=== PATIENT | male | born 1955 | race Caucasian/White ===

== ENCOUNTER → 2017-06-21 | Outpatient (CLI) | payer OTHER ==
[2017-06-21 13:08] LABS: LUTEINIZING HORMONE 2.11 IU/L
[2017-06-21 13:09] LABS: FOLLICLE STIMULAT HORMONE 3.26 IU/L
== END | disposition home or self-care (01) ==
LOC: C.LABMFLN 08:18
PROVIDERS: ATTEND Urology
DX: R79.89 Other specified abnormal findings of blood chemistry (principal)

== ENCOUNTER 2020-01-17 12:18 | Inpatient (IN) ==
[2020-01-17] MEDS ORDERED: METOPROLOL TARTRATE 1 MG/ML VIAL IV STA (12:28)
[2020-01-17] MEDS ORDERED: FUROSEMIDE 40 MG/4 ML VIAL IV STA (12:28)
--- NOTE | 2020-01-17 12:34 | Emergency Department Note ---
Impression & Plan Atrial fibrillation with rapid ventricular response, Hypoxia, Acute exacerbation of CHF (congestive heart failure), COVID-19 ED Provider Note Provider: Saji Wilkins MD DATE OF SERVICE:01/17/2020 CHIEF COMPLAINT: Hypoxia HISTORY OF PRESENT ILLNESS: Patient is a 64-year-old gentleman history of atrial fibrillation normally on Xarelto, hypertension, GERD, COPD not on oxygen, type 2 diabetes, chronic systolic heart failure presenting today from same-day surgery due to hypoxia, rapid A. fib, and fatigue with concerns of possible fluid overload. Patient states is not having significant symptoms and is not feeling short of breath currently. States he has some chronic lower extremity swelling up but is not significantly changed. States he is down to iliac knee replacement today and has held his Xarelto for the last 4 days. Is on aspirin. Took half dose of metoprolol today 50 mg of the normal 100 mg. Patient states that he did not take his 120 mg of Lasix today that he normally takes. Patient states he is nontoxic, does not feel wheezy like when he has issues with his COPD. Patient is a daily smoker. Denies chest pain or abdominal pain currently. REVIEW OF SYSTEMS: A total of 10 review of systems was obtained and negative except as stated above in the HPI. PAST MEDICAL HISTORY: As noted above MEDICATIONS: Reviewed home medications, normally Xarelto SOCIAL HISTORY: Smoker, lives at home PHYSICAL EXAM: GENERAL: alert and oriented in no acute distress on stretcher and again surgical Head: normocephalic and atraumatic EYES: No injection, discharge or icterus. NECK: Trachea midline. LUNGS: Airway patent. No retractions. Breath sounds with some expiratory wheeze and crackles in the bases HEART: Irregular tachycardic rate and rhythm. ABDOMEN: Soft and non-tender, without guarding or rebound. SKIN: Acyanotic, warm, dry, without rashes EXTREMITIES: 1-2+ lower extremity edema NEUROLOGICAL: No focal deficits. No aphasia. No facial droop or slurred speech. EK bpm atrial fibrillation rapid ventricular response. No PVC noted. No acute ST segment elevation noted. QTc does appear somewhat prolonged. CONTINUOUS CARDIAC MONITORING: was ordered and showed a heart rate of 102 bpm in atrial fibrillation Patient's laboratory studies and imaging reviewed. Differential includes Reactive airway disease, pneumonia, pneumothorax, COPD, CHF, infections, cardiac ischemia, pulmonary embolism, musculoskeletal, gastrointestinal, as well as other pathologies. IMPRESSION/MEDICAL DECISION MAKING: Patient presents for single surgery with hypoxia INR A. fib RVR. Took half dose metoprolol this morning. Given some additional IV metoprolol initially. Currently off anticoagulation. Doubt this represents pulmonary appears, fluid overloaded. Already had an x-ray and reviewed the several radiology report. Given some Lasix as he did not take this this morning as well a milligrams of the. Not having significant chest pain I doubt acute ACS again seems less likely exacerbation underlying CHF and A. fib. Covid test was sent to exclude a viral infectious source. Doubt acute pneumonia. Troponin is mildly elevated likely secondary his A. fib RVR. Not having active chest pain. Patient's Covid test does return positive today. Patient informed and thus placed in isolation. Same-day surgery unit will be informed by charge nurse. No significant electrolyte abnormality or signs of renal dysfunction. Given dexamethasone given his hypoxia with coronavirus although a syncope component is still some fluid overload. Heart rate is generally improving with some metoprolol here. Patient was agreement for plan for hospitalization. Given a dose of 1 mg/kg of Lovenox here initially for anticoagulation. DIAGNOSIS: COVID-19, hypoxia, CHF, A. fib RVR DISPOSITION: Hospitalist will evaluate for admission Patient was agreeable with this plan. Critical Care I have personally spent 33 minutes of critical care time in the direct management of this patient. This includes bedside care, interpretation of diagnostic studies, and testing, discussion with consultants, patient, and family members, and other required patient management activities. These 33 minutes is in excess of all separately billable procedures. Past Med/Surg History Medical History Anemia no known hx of blood transfusions per patient Atrial fibrillation CAD (coronary artery disease) stent x 1 (2007) Carotid artery stenosis < 50% B/L ICA stenosis per 08/2019 carotid duplex Chronic back pain Chronic steroid use chronic x 1.5 years (for right torn meniscus)- prednisone 10mg daily Congestive heart failure COPD (chronic obstructive pulmonary disease) Degenerative disc disease Depression Emphysema lung stage 3, follows with [facility] Pulmonary, stable GERD (gastroesophageal reflux disease) Hyperlipidemia Hypertension Myocardial Infarction 2007, follows with [facility] Cardiology (Jassi) Obesity Osteoarthritis Pulmonary embolism (approximately 2017) x2 Surgical History History of cardiac cath 2007 (stent x1) History of colonoscopy S/P lumbar fusion [id number]-S1 Family History Other Heart disease No family history of adverse response to anesthesia Social History Smoking Status: Current every day smoker Tobacco Type: Cigarettes Years Smoked: 40; Cigarettes Per Day: 10; Second Hand Exposure: Yes; Do You Dip or Chew Tobacco: No; Tobacco Cessation Education Requested by Patient: No Hx Alcohol Use: Yes Alcohol type: other Alcohol Intake Frequency: 2-3 x/Week Alcohol Intake Frequency Comment: 3 drinks liquor 2-3x/week Hx Substance Use: No Preferred Language: Uzbek Communication Ability: Effective Sociology Instructor Required: No Beliefs That Will Affect Care: None Current Living Situation: Alone Other Information That Helps Us Care for You: No Feels Safe at Home: Yes Assistive Devices: Glasses Allergies Allergies Allergy/AdvReac Type Severity Reaction Status Date / Time No Known Allergies Allergy Verified 01/17/20 10:30 Home Meds Home Medications Medication Instructions Recorded Confirmed albuterol sulfate 1.25 mg INHALATION Q4H PRN 01/04/20 01/17/20 aspirin [Aspirin Low-Strength] 81 mg PO QAM 01/04/20 01/17/20 cyanocobalamin (vitamin B-12) 1,000 mcg PO QAM 01/04/20 01/17/20 [Vitamin B-12] duloxetine 60 mg PO QAM 01/04/20 01/17/20 ezetimibe 10 mg PO QAM 01/04/20 01/17/20 ferrous sulfate [Iron (ferrous 325 mg PO QAM 01/04/20 01/17/20 sulfate)] [id number] 1 inh INHALATION QAM 01/04/20 01/17/20 [Trelegy Ellipta] furosemide 80 mg PO QAM 01/04/20 01/17/20 lisinopril 10 mg PO QAM 01/04/20 01/17/20 omeprazole 20 mg PO QAM 01/04/20 01/17/20 potassium chloride 20 meq PO QAM 01/04/20 01/17/20 prednisone 10 mg PO QAM 01/04/20 01/17/20 rivaroxaban [Xarelto] 20 mg PO QAM 01/04/20 01/17/20 rosuvastatin 40 mg PO QAM 01/04/20 01/17/20 metoprolol succinate 100 mg PO QAM 01/17/20 01/17/20 Results & Data (ED) Vital Signs Vital Signs - 24 hr 01/17/20 12:24 01/17/20 12:26 01/17/20 12:28 Temperature 36.8 C Temperature Source Oral Pulse Rate 125 H 113 H 109 H Pulse Rate [Apical] Pulse Rate from SpO2 Sensor 75 77 Pulse Rhythm [Apical] Respiratory Rate 18 22 18 Respiratory Effort / Characteristics Non-Labored Respiratory Depth Normal Respiratory Pattern Blood Pressure 123/63 123/63 Blood Pressure [Right Arm] Blood Pressure Mean 73 83 Blood Pressure Mean [Right Arm] Blood Pressure Position Lying Blood Pressure Position [Right Arm] Pulse Oximetry 96 98 87 L Oxygen Delivery Method Room Air Oxygen Flow Rate Sepsis Recent Fever Within 48 Hours No Sepsis New/Unexplained Change in Mental Status N/A Sepsis Action Taken by Nursing No Action Required 01/17/20 12:30 01/17/20 12:40 01/17/20 12:45 Temperature Temperature Source Pulse Rate 100 H 100 H Pulse Rate [Apical] Pulse Rate from SpO2 Sensor 90 86 Pulse Rhythm [Apical] Respiratory Rate 16 17 Respiratory Effort / Characteristics Non-Labored Spontaneous Respiratory Depth Normal Respiratory Pattern Blood Pressure Blood Pressure [Right Arm] Blood Pressure Mean Blood Pressure Mean [Right Arm] Blood Pressure Position Blood Pressure Position [Right Arm] Pulse Oximetry 97 97 Oxygen Delivery Method Oxygen Flow Rate Sepsis Recent Fever Within 48 Hours Sepsis New/Unexplained Change in Mental Status Sepsis Action Taken by Nursing 01/17/20 12:47 01/17/20 13:00 01/17/20 13:13 Temperature Temperature Source Pulse Rate 104 H 90 96 H Pulse Rate [Apical] 98 H Pulse Rate from SpO2 Sensor 84 82 Pulse Rhythm [Apical] Irregular Respiratory Rate 16 16 Respiratory Effort / Characteristics Respiratory Depth Respiratory Pattern Blood Pressure 123/63 112/66 Blood Pressure [Right Arm] 112/66 Blood Pressure Mean 95 Blood Pressure Mean [Right Arm] 81 Blood Pressure Position Blood Pressure Position [Right Arm] Lying Pulse Oximetry 93 97 Oxygen Delivery Method Nasal Cannula Oxygen Flow Rate 2 Sepsis Recent Fever Within 48 Hours Sepsis New/Unexplained Change in Mental Status Sepsis Action Taken by Nursing 01/17/20 13:15 01/17/20 13:30 01/17/20 13:36 Temperature Temperature Source Pulse Rate 101 H 104 H Pulse Rate [Apical] 100 H Pulse Rate from SpO2 Sensor 77 76 Pulse Rhythm [Apical] Respiratory Rate 16 17 22 Respiratory Effort / Characteristics Respiratory Depth Normal Respiratory Pattern Regular Blood Pressure 91/56 L Blood Pressure [Right Arm] 103/69 Blood Pressure Mean 73 Blood Pressure Mean [Right Arm] 80 Blood Pressure Position Blood Pressure Position [Right Arm] Lying Pulse Oximetry 97 98 99 Oxygen Delivery Method Nasal Cannula Nasal Cannula Nasal Cannula Oxygen Flow Rate 2 2 Sepsis Recent Fever Within 48 Hours Sepsis New/Unexplained Change in Mental Status Sepsis Action Taken by Nursing 01/17/20 13:37 01/17/20 13:45 Temperature Temperature Source Pulse Rate 92 H 94 H Pulse Rate [Apical] Pulse Rate from SpO2 Sensor 85 78 Pulse Rhythm [Apical] Respiratory Rate 16 16 Respiratory Effort / Characteristics Respiratory Depth Respiratory Pattern Blood Pressure 103/69 Blood Pressure [Right Arm] Blood Pressure Mean 72 Blood Pressure Mean [Right Arm] Blood Pressure Position Blood Pressure Position [Right Arm] Pulse Oximetry 99 98 Oxygen Delivery Method Nasal Cannula Nasal Cannula Oxygen Flow Rate 2 2 Sepsis Recent Fever Within 48 Hours Sepsis New/Unexplained Change in Mental Status Sepsis Action Taken by Nursing Laboratory Data Result diagrams: 01/17/20 12:30 01/17/20 12:30 Lab Results 01/17/20 01/17/20 01/17/20 Range/Units 12:30 12:30 12:30 WBC 5.70 (4.8-10.8) K/uL RBC 5.35 (4.7-6.1) M/uL Hgb 13.0 L (14.0-18.0) g/dL Hct 45.2 (42-52) % MCV 84.5 (80-100) fL MCH 24.3 L (25-34) pg MCHC 28.8 L (32-36) g/dL RDW Std Deviation 71.5 H (36.4-46.3) fL RDW Coeff of Gina 23.1 H (11.5-14.5) % Plt Count 148 (130-400) K/uL MPV 9.9 (7.4-10.4) fL Immature Gran % (Auto) 0.2 % Neut % (Auto) 80.8 % Lymph % (Auto) 6.7 % [place] % (Auto) 12.3 % Eos % (Auto) 0.0 % Baso % (Auto) 0.0 % Neut # (Auto) 4.61 (1.4-6.5) K/uL Lymph # (Auto) 0.38 L (1.2-3.4) K/uL [place] # (Auto) 0.70 H (0.11-0.59) K/uL Eos # (Auto) 0.00 (0-0.5) K/uL Baso # (Auto) 0.00 (0-0.2) K/uL Immature Gran # (Auto) 0.01 (0.00-0.02) K/uL Anisocytosis Present PT 11.8 (9.0-12.0) Seconds INR 1.1 (0.9-1.1) APTT 24.5 (21.0-31.0) Seconds PTT Ratio 0.9 Sodium 136 (136-145) mmol/L Potassium 3.7 (3.5-5.1) mmol/L Chloride 101 (98-107) mmol/L Carbon Dioxide 31 (21-32) mmol/L Anion Gap 4.0 (3-11) BUN 16 (7-18) mg/dl Creatinine 1.28 (0.6-1.4) mg/dl Est Cr Clr Drug Dosing 84.6 ml/min Est GFR ( Amer) 69.1 Est GFR (Non-Af Amer) 59.6 BUN/Creatinine Ratio 12.3 (10-20) Glucose 118 H (70-99) mg/dl Calcium 8.3 L (8.5-10.1) mg/dl Magnesium 2.3 (1.8-2.4) mg/dl Total Bilirubin 0.7 (0.2-1) mg/dl AST 26 (15-37) U/L ALT 27 (12-78) U/L Alkaline Phosphatase 74 (45-117) U/L Troponin I 0.081 H* (0-0.045) ng/ml Total Protein 6.6 (6.4-8.2) gm/dl Albumin 3.2 L (3.4-5.0) gm/dl Globulin 3.4 (2.5-4.0) gm/dl Albumin/Globulin Ratio 0.9 (0.9-2) COVID-19 Eval Order SARS-CoV-2, RNA, NAAT (NEGATIVE) 01/17/20 01/17/20 Range/Units 12:40 12:40 WBC (4.8-10.8) K/uL RBC (4.7-6.1) M/uL Hgb (14.0-18.0) g/dL Hct (42-52) % MCV (80-100) fL MCH (25-34) pg MCHC (32-36) g/dL RDW Std Deviation (36.4-46.3) fL RDW Coeff of Gina (11.5-14.5) % Plt Count (130-400) K/uL MPV (7.4-10.4) fL Immature Gran % (Auto) % Neut % (Auto) % Lymph % (Auto) % [place] % (Auto) % Eos % (Auto) % Baso % (Auto) % Neut # (Auto) (1.4-6.5) K/uL Lymph # (Auto) (1.2-3.4) K/uL [place] # (Auto) (0.11-0.59) K/uL Eos # (Auto) (0-0.5) K/uL Baso # (Auto) (0-0.2) K/uL Immature Gran # (Auto) (0.00-0.02) K/uL Anisocytosis PT (9.0-12.0) Seconds INR (0.9-1.1) APTT (21.0-31.0) Seconds PTT Ratio Sodium (136-145) mmol/L Potassium (3.5-5.1) mmol/L Chloride (98-107) mmol/L Carbon Dioxide (21-32) mmol/L Anion Gap (3-11) BUN (7-18) mg/dl Creatinine (0.6-1.4) mg/dl Est Cr Clr Drug Dosing ml/min Est GFR ( Amer) Est GFR (Non-Af Amer) BUN/Creatinine Ratio (10-20) Glucose (70-99) mg/dl Calcium (8.5-10.1) mg/dl Magnesium (1.8-2.4) mg/dl Total Bilirubin (0.2-1) mg/dl AST (15-37) U/L ALT (12-78) U/L Alkaline Phosphatase (45-117) U/L Troponin I (0-0.045) ng/ml Total Protein (6.4-8.2) gm/dl Albumin (3.4-5.0) gm/dl Globulin (2.5-4.0) gm/dl Albumin/Globulin Ratio (0.9-2) COVID-19 Eval Order Covid19 IDNow atMMAC SARS-CoV-2, RNA, NAAT POSITIVE A* (NEGATIVE) Administered Medications Discontinued Medications Dexamethasone (Dexamethasone Sod Inj 10 Mg/Ml Vial) 6 mg IV NOW ONE Stop: 01/17/20 13:25 Last Admin: 01/17/20 13:36 Dose: 6 mg Documented by: [id number] Enoxaparin Sodium (Enoxaparin 1 Mg/Kg) 1 mg SQ ONCE ONE Stop: 01/17/20 13:46 Last Admin: 01/17/20 16:20 Dose: Not Given Documented by: [id number] Enoxaparin Sodium (Enoxaparin 150 Mg/Ml Syr) 129 mg SQ NOW ONE Stop: 01/17/20 14:01 Last Admin: 01/17/20 14:15 Dose: 129 mg Documented by: [id number] Furosemide (Furosemide 40 Mg/4 Ml Vial) 80 mg IV NOW STA Stop: 01/17/20 12:29 Last Admin: 01/17/20 12:47 Dose: 80 mg Documented by: [id number] Remdesivir 200 mg/ Sodium (Chloride) 250 mls @ 125 mls/hr IV TODAY@1600 ONE; Protocol Stop: 01/17/20 17:59 Last Admin: 01/17/20 16:00 Dose: 125 mls/hr Documented by: [id number] Metoprolol Succinate (Metoprolol Succ 50mg Ext Rel Tab) 50 mg PO NOW STA Stop: 01/17/20 14:03 Last Admin: 01/17/20 14:27 Dose: Not Given Documented by: [id number] Metoprolol Tartrate (Metoprolol Tartrate 1 Mg/Ml Vial) 5 mg IV NOW STA Stop: 01/17/20 12:29 Last Admin: 01/17/20 12:47 Dose: 5 mg Documented by: [id number] Metoprolol Tartrate (Metoprolol Tartrate 50 Mg Tab) 50 mg PO NOW STA Stop: 01/17/20 15:53 Last Admin: 01/17/20 16:17 Dose: Not Given Documented by: [id number] Potassium Chloride (Potassium Chloride Crtab 20 Meq Tabcr) 40 meq PO NOW STA Stop: 01/17/20 14:13 Last Admin: 01/17/20 14:27 Dose: 40 meq Documented by: [id number] Discharge Plan Visit Data Chief Complaint: Arrhythmia/Palpitations Stated Complaint: CARDIAC ED Provider: Saji Wilkins Discharge Problem: Atrial fibrillation with rapid ventricular response, Hypoxia, Acute exacerbation of CHF (congestive heart failure), COVID-19 Patient Disposition: Admitted As Inpatient Discharge Instructions Interventions: ED Discharge Assessment Last Done: 01/17/20 16:24 Discharge Problem: Acute exacerbation of CHF (congestive heart failure) Qualifiers: Heart failure type: systolic Qualified Code(s): I50.23 - Acute on chronic systolic (congestive) heart failure
[2020-01-17 12:58] LABS: INR 1.1 (0.9-1.1); Partial Thromboplastin Ratio 0.9; Partial Thromboplastin Time 24.5 Seconds (21.0-31.0); Prothrombin Time 11.8 Seconds (9.0-12.0)
[2020-01-17 13:01] LABS: Albumin Level 3.2 gm/dl (3.4-5.0); BUN Creatinine Ratio 12.3 (10-20); Calcium 8.3 mg/dl (8.5-10.1); Creatinine Clr Calc Pharmacy 84.6 ml/min; Est GFR (African American) 69.1; Est GFR (Non-African American) 59.6; Magnesium 2.3 mg/dl (1.8-2.4); Potassium 3.7 mmol/L (3.5-5.1)
[2020-01-17 13:09] LABS: Albumin Globulin Ratio 0.9 (0.9-2); Bilirubin,Total 0.7 mg/dl (0.2-1); Globulin 3.4 gm/dl (2.5-4.0); Total Protein 6.6 gm/dl (6.4-8.2); Troponin I 0.081 ng/ml (0-0.045)
[2020-01-17 13:10] LABS: Hematocrit (blood only) 45.2 % (42-52); Immature Granulocytes # (auto) 0.01 K/uL (0.00-0.02); Immature Granulocytes % (auto) 0.2 %; Lymphocytes # (auto) 0.38 K/uL (1.2-3.4); Lymphocytes % (auto) 6.7 %; Mean Corpuscular Hemoglobin 24.3 pg (25-34); Mean Corpuscular Hgb Conc 28.8 g/dL (32-36); Mean Corpuscular Volume 84.5 fL (80-100); Mean Platelet Volume 9.9 fL (7.4-10.4); Monocytes % (auto) 12.3 %; Neutrophils # (auto) 4.61 K/uL (1.4-6.5); Neutrophils % (auto) 80.8 %; Platelet Count 148 K/uL (130-400); RDW Coefficient of Variation 23.1 % (11.5-14.5); RDW Standard Deviation 71.5 fL (36.4-46.3); Red Blood Count 5.35 M/uL (4.7-6.1)
[2020-01-17] MEDS ORDERED: DEXAMETHASONE SOD INJ 10 MG/ML VIAL IV ONE (13:24)
[2020-01-17 13:34] LABS: Anisocytosis Present
[2020-01-17] MEDS ORDERED: ENOXAPARIN 1 MG/KG SQ ONE (13:45)
[2020-01-17] MEDS ORDERED: ENOXAPARIN 150 MG/ML SYR SQ ONE (14:00)
[2020-01-17] MEDS ORDERED: METOPROLOL SUCC 50MG EXT REL TAB PO STA (14:02)
[2020-01-17] MEDS ORDERED: POTASSIUM CHLORIDE CRTAB 20 MEQ TABCR PO STA (14:12)
--- NOTE | 2020-01-17 14:29 | History & Physical Report ---
Date of Service January 17, 2020 Assessment & Plan (1) Hypoxia: This is a 64-year-old male with PMH of CAD (s/p stent in 2007) permanent atrial fibrillation anticoagulated on Xarelto, chronic diastolic heart failure, hypertension, tobacco use disorder, COPD and other medical problems listed below who presents from same-day surgery with hypoxia and a positive covid test. -Scheduled for knee replacement today and was found to be hypoxic at 87% and in atrial fibrillation with RVR at 119 bpm. Was sent to ED for further evaluation -Hypoxia likely multifactorial in setting of COVID-19, A. fib with RVR and acute exacerbation of CHF -See below with discussion of separate issues -Continue supplemental O2, watch respiratory status closely (2) COVID-19: Positive COVID test from this morning - asymptomatic but hypoxic at 87% with some clinical volume overload, CXR pending -Given dexamethasone 6 mg IV in ED. Plan to continue daily. Also initiating remdesivir. Consenting patient for convalescent plasma-will give 1 unit and then reassess volume status -D dimer, ferritin, CRP, procalcitonin pending - considering abx -Droplet and airborne isolation precautions (3) Atrial fibrillation with rapid ventricular response: A fib with RVR at 119 initially. Known permanent atrial fibrillation, follows with [facility] cardiology in [place]. Xarelto has been held for 4 days preoperatively for planned knee surgery today -Heart rate improved to 100 after Lopressor 5 mg IV x 1. Only received half of metoprolol succinate dose of 50 mg this morning. Given additional 50 mg in ED -Replacing potassium. Keep K>4, Mg>2. Lopressor 5 mg IV every 6 hours as needed for HR >110, initiated therapeutic dose Lovenox for anticoagulation -Routine cardiology consult (4) Acute exacerbation of CHF (congestive heart failure): Appears overloaded clinically on arrival. Given 80mg IV Lasix. CXR pending. Troponin 0.081, BNP pending -Preop TTE from [facility] on 01/10/20 with EF 50%, left ventricular systolic function is borderline low. Was in Afib with RVR with rate ranging from 90 to 120 bpm during the study. The right ventricular cavity is mildly dilated. The right ventricular systolic function is mildly reduced. Mild mitral regurgitation is present. Mild tricuspid regurgitation is present. There is aortic valve sclerosis without stenosis. Trace aortic regurgitation is present -Routine cardiology consult placed. Restrict fluid intake, monitor daily weights (5) CAD (coronary artery disease): H/o stent in 2007 -No chest pain or acute ST changes. Troponin mildly elevated at 0.081 in setting of covid, A fib with RVR -Continue aspirin, lisinopril, beta blockers, statin -Trend troponin, monitor on telemetry (6) COPD (chronic obstructive pulmonary disease): Custodial tobacco use, still smoking 1/2 ppd. Declines nicotine patch -Continue Trelegy Ellipta, albuterol inh PRN (7) Hypertension: Normotensive. Continue lisinopril, metoprolol succinate (8) Chronic steroid use: Currently taking prednisone 10mg daily for knee - hold while receiving IV Dexamethasone (9) Depression: Continue Cymbalta (10) Hyperlipidemia: Continue statin, ezetimibe. Monitor LFTs closely while also receiving Remdesivir DVT Ppx: Continue therapeutic dose Lovenox Code status: FULL PCP: ALYSSA Escalera Dispo: Admitted to PCU. Discharge planning ordered Patient seen in collaboration with Dr. Stover. Please see addendum. History of Present Illness Chief Complaint: A. fib with RVR, hypoxia Primary Care Provider: Tika Escalera This is a 64-year-old male with PMH of CAD (s/p stent in 2007) permanent atrial fibrillation anticoagulated on Xarelto, chronic diastolic heart failure, hypertension, tobacco use disorder, COPD and other medical problems listed below who presents from same-day surgery with hypoxia and a positive covid test. Was scheduled for knee replacement today and was found to be hypoxic at 87% and in atrial fibrillation with RVR at 119 bpm. Was sent to ED for further evaluation. Patient was asymptomatic from a cardiac perspective, denying any lightheadedness, chest pain, palpitations or shortness of breath beyond baseline. Has smoking history of 44 pack years and COPD with some shortness of breath at baseline but does not require oxygen. Uses inhalers as needed. Has not taken Xarelto in 4 days as instructed preoperatively. Normally takes metoprolol succinate 100 mg daily but was instructed to only take 50 mg this morning prior to surgery. Was also found to be Covid positive on preoperative screen. Denies any fever, chills, lightheadedness, headache, cough, shortness of breath, nausea, vomiting, abdominal pain or diarrhea. No known sick contacts or previous Covid diagnosis. Has been taking all other medications as prescribed. Initially hypoxic at 87% but now 92% on 2 L nasal cannula. Heart rate 132 now d own to 100 after 5 mg IV Lopressor. No leukocytosis, hgb stable at 13, potassium of 3.7, magnesium 2.3, troponin 0.081. BNP, procalcitonin, CK, ferritin and d- dimer pending. Chest x-ray pending. Given dexamethasone 6 mg IV daily in ED as well as 80 mg IV Lasix. Started on therapeutic dose Lovenox for anticoagulation. Allergies Allergy/AdvReac Type Severity Reaction Status Date / Time No Known Allergies Allergy Verified 01/17/20 10:30 Home Medications Medication Instructions Recorded Confirmed Type albuterol sulfate 1.25 mg INHALATION Q4H PRN 01/04/20 01/17/20 History aspirin [Aspirin Low-Strength] 81 mg PO QAM 01/04/20 01/17/20 History cyanocobalamin (vitamin B-12) 1,000 mcg PO QAM 01/04/20 01/17/20 History [Vitamin B-12] duloxetine 60 mg PO QAM 01/04/20 01/17/20 History ezetimibe 10 mg PO QAM 01/04/20 01/17/20 History ferrous sulfate [Iron (ferrous 325 mg PO QAM 01/04/20 01/17/20 History sulfate)] [id number] 1 inh INHALATION QAM 01/04/20 01/17/20 History [Trelegy Ellipta] furosemide 80 mg PO QAM 01/04/20 01/17/20 History lisinopril 10 mg PO QAM 01/04/20 01/17/20 History omeprazole 20 mg PO QAM 01/04/20 01/17/20 History potassium chloride 20 meq PO QAM 01/04/20 01/17/20 History prednisone 10 mg PO QAM 01/04/20 01/17/20 History rivaroxaban [Xarelto] 20 mg PO QAM 01/04/20 01/17/20 History rosuvastatin 40 mg PO QAM 01/04/20 01/17/20 History metoprolol succinate 100 mg PO QAM 01/17/20 01/17/20 History Past Med/Surg History Medical History (Updated 01/17/20 @ 14:48 by Annia De León PA-C) Anemia no known hx of blood transfusions per patient Atrial fibrillation CAD (coronary artery disease) stent x 1 (2007) Carotid artery stenosis < 50% B/L ICA stenosis per 08/2019 carotid duplex Chronic back pain Chronic steroid use chronic x 1.5 years (for right torn meniscus)- prednisone 10mg daily Congestive heart failure COPD (chronic obstructive pulmonary disease) Degenerative disc disease Depression Emphysema lung stage 3, follows with [facility] Pulmonary, stable GERD (gastroesophageal reflux disease) Hyperlipidemia Hypertension Myocardial Infarction 2007, follows with [facility] Cardiology ([place]) Obesity Osteoarthritis Pulmonary embolism (approximately 2017) x2 Surgical History History of cardiac cath 2007 (stent x1) History of colonoscopy S/P lumbar fusion L4-L5-S1 Family History (Updated 01/17/20 @ 14:43 by Annia De León PA-C) Other Heart disease No family history of adverse response to anesthesia Social History Smoking Status: Current every day smoker Tobacco Type: Cigarettes Years Smoked: 40; Cigarettes Per Day: 10; Second Hand Exposure: Yes; Do You Dip or Chew Tobacco: No; Tobacco Cessation Education Requested by Patient: No Hx Alcohol Use: Yes Alcohol type: other Alcohol Intake Frequency: 2-3 x/Week Alcohol Intake Frequency Comment: 3 drinks liquor 2-3x/week Hx Substance Use: No Preferred Language: Ukrainian Communication Ability: Effective 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 Physical Exam Physical Exam: Please see Dr. Stover's addendum for physical exam details. Results & Data Results & Data ([facility]) Vital Signs (Past 12 Hours) Vital Signs Temp Pulse Pulse Resp BP BP Pulse Ox 01/17/20 13:36 100 H 22 103/69 99 01/17/20 13:13 98 H 17 112/66 96 01/17/20 13:00 90 16 93 01/17/20 12:47 104 H 123/63 01/17/20 12:45 100 H 17 97 01/17/20 12:30 100 H 16 97 01/17/20 12:28 36.8 C 109 H 18 123/63 87 L 01/17/20 12:26 113 H 22 98 01/17/20 12:24 125 H 18 12363 96 Laboratory Results Short CBC 01/17/20 01/17/20 01/17/20 Range/Units 12:30 12:30 12:30 WBC 5.70 (4.8-10.8) K/uL RBC 5.35 (4.7-6.1) M/uL Hgb 13.0 L (14.0-18.0) g/dL Hct 45.2 (42-52) % MCV 84.5 (80-100) fL MCH 24.3 L (25-34) pg MCHC 28.8 L (32-36) g/dL RDW Std Deviation 71.5 H (36.4-46.3) fL RDW Coeff of Gina 23.1 H (11.5-14.5) % Plt Count 148 (130-400) K/uL MPV 9.9 (7.4-10.4) fL Immature Gran % (Auto) 0.2 % Neut % (Auto) 80.8 % Lymph % (Auto) 6.7 % Hubbard % (Auto) 12.3 % Eos % (Auto) 0.0 % Baso % (Auto) 0.0 % Neut # (Auto) 4.61 (1.4-6.5) K/uL Lymph # (Auto) 0.38 L (1.2-3.4) K/uL Hubbard # (Auto) 0.70 H (0.11-0.59) K/uL Eos # (Auto) 0.00 (0-0.5) K/uL Baso # (Auto) 0.00 (0-0.2) K/uL Immature Gran # (Auto) 0.01 (0.00-0.02) K/uL Anisocytosis Present PT 11.8 (9.0-12.0) Seconds INR 1.1 (0.9-1.1) APTT 24.5 (21.0-31.0) Seconds PTT Ratio 0.9 Sodium 136 (136-145) mmol/L Potassium 3.7 (3.5-5.1) mmol/L Chloride 101 (98-107) mmol/L Carbon Dioxide 31 (21-32) mmol/L Anion Gap 4.0 (3-11) BUN 16 (7-18) mg/dl Creatinine 1.28 (0.6-1.4) mg/dl Est Cr Clr Drug Dosing 84.6 ml/min Est GFR ( Amer) 69.1 Est GFR (Non-Af Amer) 59.6 BUN/Creatinine Ratio 12.3 (10-20) Glucose 118 H (70-99) mg/dl Calcium 8.3 L (8.5-10.1) mg/dl Magnesium 2.3 (1.8-2.4) mg/dl Total Bilirubin 0.7 (0.2-1) mg/dl AST 26 (15-37) U/L ALT 27 (12-78) U/L Alkaline Phosphatase 74 (45-117) U/L Troponin I 0.081 H* (0-0.045) ng/ml Total Protein 6.6 (6.4-8.2) gm/dl Albumin 3.2 L (3.4-5.0) gm/dl Globulin 3.4 (2.5-4.0) gm/dl Albumin/Globulin Ratio 0.9 (0.9-2) COVID-19 Eval Order SARS-CoV-2, RNA, NAAT (NEGATIVE) 01/17/20 01/17/20 Range/Units 12:40 12:40 WBC (4.8-10.8) K/uL RBC (4.7-6.1) M/uL Hgb (14.0-18.0) g/dL Hct (42-52) % MCV (80-100) fL MCH (25-34) pg MCHC (32-36) g/dL RDW Std Deviation (36.4-46.3) fL RDW Coeff of Gina (11.5-14.5) % Plt Count (130-400) K/uL MPV (7.4-10.4) fL Immature Gran % (Auto) % Neut % (Auto) % Lymph % (Auto) % Hubbard % (Auto) % Eos % (Auto) % Baso % (Auto) % Neut # (Auto) (1.4-6.5) K/uL Lymph # (Auto) (1.2-3.4) K/uL Hubbard # (Auto) (0.11-0.59) K/uL Eos # (Auto) (0-0.5) K/uL Baso # (Auto) (0-0.2) K/uL Immature Gran # (Auto) (0.00-0.02) K/uL Anisocytosis PT (9.0-12.0) Seconds INR (0.9-1.1) APTT (21.0-31.0) Seconds PTT Ratio Sodium (136-145) mmol/L Potassium (3.5-5.1) mmol/L Chloride (98-107) mmol/L Carbon Dioxide (21-32) mmol/L Anion Gap (3-11) BUN (7-18) mg/dl Creatinine (0.6-1.4) mg/dl Est Cr Clr Drug Dosing ml/min Est GFR ( Amer) Est GFR (Non-Af Amer) BUN/Creatinine Ratio (10-20) Glucose (70-99) mg/dl Calcium (8.5-10.1) mg/dl Magnesium (1.8-2.4) mg/dl Total Bilirubin (0.2-1) mg/dl AST (15-37) U/L ALT (12-78) U/L Alkaline Phosphatase (45-117) U/L Troponin I (0-0.045) ng/ml Total Protein (6.4-8.2) gm/dl Albumin (3.4-5.0) gm/dl Globulin (2.5-4.0) gm/dl Albumin/Globulin Ratio (0.9-2) COVID-19 Eval Order Covid19 [facility]Now [facility] SARS-CoV-2, RNA, NAAT POSITIVE A* (NEGATIVE) BMP 01/17/20 12:30 Sodium 136 Potassium 3.7 Chloride 101 Carbon Dioxide 31 BUN 16 Creatinine 1.28 Glucose 118 H Calcium 8.3 L Cardiac Enzymes 01/17/20 Range/Units 12:30 Troponin I 0.081 H* (0-0.045) ng/ml Liver Function 01/17/20 Range/Units 12:30 Total Bilirubin 0.7 (0.2-1) mg/dl AST 26 (15-37) U/L ALT 27 (12-78) U/L Alkaline Phosphatase 74 (45-117) U/L Albumin 3.2 L (3.4-5.0) gm/dl ECG Rhythm: atrial fibrillation Findings: + PVC and + prolonged QT Code Status & VTE Plan VTE Prophylaxis Plan VTE Prophylaxis will be ordered: Yes Supervising Physician Co-Signing Physician Notes Patient is a 64-year-old male with history of coronary artery disease, chronic atrial fibrillation on anticoagulation with Xarelto, diastolic heart failure, COPD, ongoing tobacco use disorder and other medical problems presents for elective knee replacement surgery today but was found to be hypoxic, in A. fib RVR. Patient is noted to be 87% on room air and improved with minimal supplemental oxygen. He denied any history of chest pain, palpitations, shortness of breath, dizziness. He admits to taking a lower dose of his usual of metoprolol as recommended for elective surgery. He denies being on oxygen chronically. Currently Xarelto is on hold for elective surgery. Please review HPI for complete details of presentation. His preop Covid screen was positive. Chest x-ray showed prominence of pulmonary vasculature, right basilar opacities. Physical Exam: Vitals signs as noted above General Appearance: Morbidly obese, no apparent distress Head: normocephalic, Atraumatic Eyes: normal inspection, EOMI, PERRL Neck: supple, Trachea midline Respiratory/Chest: Decreased breath sounds, minimal basal crackles, No accessory muscle use Cardiovascular: Irregular irregular rhythm, tachycardia, No murmur Abdomen/GI:Soft, Non tender, Bowel sounds present Extremities/Musculoskelatal:normal inspection, 1+ B/L LE edema Neurologic/Psych:AAOX3, grossly no focal neurological deficits Skin: normal color, warm Acute respiratory failure with hypoxia COVID pneumonia COVID Screen:Positive CXR:as above Procalcitonin:Normal Troponin negative CRP:3.03 Ferritin 118 D-Dimer normal Blood Cultures obtained Start on Remdesivir, Dexamethasone Coalescent plasma as patient consented Isolation precautions--Airborne/Contact Encourage frequent Proning Continue home Lasix Albuterol PRN Continue Supplemental Oxygen as needed DVT prophylaxis--therapeutic Lovenox given A. fib RVR Monitor LFTs, renal function while on Remdesivir A. fib RVR Resume home dose of metoprolol IV Lopressor as needed Was on Xarelto for anticoagulation chronically Mild troponinlikely secondary to demand ischemia Started on therapeutic Lovenox Check TSH Consult Cardiology Trend cardiac enzymes Consider checking echo if patient develops chest pain Mild acute diastolic CHF Received IV Lasix Monitor volume status closely Monitor I's and O's, daily weight Continue home diuretics Prolonged QTC Avoid QTC prolonging meds I personally reviewed the record. Patient is interviewed and examined at bedside. Patient's care is coordinated with Annia De León PA-C. Please refer to the documentation above for details of patient's presentation and for discussion of other issues. (1) Acute exacerbation of CHF (congestive heart failure) Heart failure type: systolic Qualified Code(s): I50.23 - Acute on chronic systolic (congestive) heart failure
[2020-01-17] MEDS ORDERED: METOPROLOL TARTRATE 1 MG/ML VIAL IV PRN (15:07)
[2020-01-17 15:10] LABS: D Dimer 360 ug/L FEU (0-500)
[2020-01-17 15:13] LABS: C Reactive Protein 3.03 mg/dl (0-0.29); Ferritin 118.7 ng/ml (8-388)
[2020-01-17] MEDS ORDERED: ACETAMINOPHEN 325 MG TAB PO PRN (15:26)
[2020-01-17] MEDS ORDERED: METOPROLOL TARTRATE 50 MG TAB PO STA (15:52)
--- NOTE | 2020-01-17 15:59 | Cardiology Consultation ---
Date of Consultation January 17, 2020 Assessment & Plan (1) Atrial fibrillation with rapid ventricular response: (2) Chronic diastolic heart failure: (3) CAD (coronary artery disease): (4) Elevated troponin I level: (5) COVID-19: (6) Hypoxia: 64-year-old patient with hypoxia and COVID-19 infection. Atrial fibrillation with rapid ventricular response recorded during recent office visits. Toprol-XL recently titrated to 100 mg daily in the outpatient setting, however, he has only taken 50 mg today. Recommend titration of metoprolol to 50 mg 3 times daily. Utilize short acting formulation, tartrate, during hospitalization. Patient anticoagulated chronically with Xarelto, however, received 1 dose of subcutaneous Lovenox in the ER. Recommend continuing anticoagulation during hospitalization. Patient without subjective shortness of breath, however, hypoxia noted and mild congestion on chest x-ray. Agree with titration of oral Lasix to 80 mg daily. He received 1 dose of IV Lasix in the ER. Follow fluid balance, electrolytes, and daily GFR. Elevated troponin secondary to hypoxia and atrial fibrillation with rapid ventricular response. No evidence of acute coronary syndrome currently. No need for repeat echocardiogram with recent studies noted above including Lexiscan nuclear stress test 12/2019. History of Present Illness Reason for Consultation: Atrial fibrillation with rapid ventricular response Requesting Physician: Dr. Stover Attending Physician: Yonatan Stover MD History of Present Illness 64-year-old patient presented to the outpatient surgical center today for elective knee replacement. Tachycardia and hypoxia noted by the anesthesia service. Patient referred to the emergency department for further evaluation and treatment. COVID-19 testing is positive. Patient denies cough, fever, chills, or sick contacts. No loss of taste or smell. He lives alone. Denies chest pain, unusual shortness of breath, or recent decline in functional capacity. His activity is limited by chronic knee discomfort. He is a chronic tobacco user with underlying COPD. No recent weight gain, orthopnea, or paroxysmal nocturnal dyspnea. He reports moderate bilateral, chronic pedal and ankle edema. Recently evaluated in the [facility] cardiology clinic in [place] for preoperative or stratification. Lexiscan nuclear stress test performed 01/03/2020 reports a small sized moderate to severe perfusion defect involving the apical lateral wall and the inferior lateral wall segments. The defect is fixed without evidence of reversibility. The calculated ejection fraction was markedly reduced at 20%. Due to low ejection fraction, a limited follow-up echocardiogram was performed. Left ventricular ejection fraction of 50% reported with atrial fibrillation and rapid ventricular response during the study. No significant valvular disease. Mild diffuse left ventricular hypokinesis without regional wall motion abnormality. Patient evaluated via telephone due to positive COVID-19 status. Cardiac history noted below: 1. Lateral wall ST elevation [place] March 2007 status post bare-metal stenting of the left circumflex, single-vessel disease. 2. Permanent atrial fibrillation, chronically anticoagulated with Xarelto 3. Chronic diastolic heart failure with right ventricular dysfunction 4. Long-term tobacco use with COPD 5. Dyslipidemia 6. Hypertension Allergies Allergy/AdvReac Type Severity Reaction Status Date / Time No Known Allergies Allergy Verified 01/17/20 10:30 Home Medications Medication Instructions Recorded Confirmed Type albuterol sulfate 1.25 mg INHALATION Q4H PRN 01/04/20 01/17/20 History aspirin [Aspirin Low-Strength] 81 mg PO QAM 01/04/20 01/17/20 History cyanocobalamin (vitamin B-12) 1,000 mcg PO QAM 01/04/20 01/17/20 History [Vitamin B-12] duloxetine 60 mg PO QAM 01/04/20 01/17/20 History ezetimibe 10 mg PO QAM 01/04/20 01/17/20 History ferrous sulfate [Iron (ferrous 325 mg PO QAM 01/04/20 01/17/20 History sulfate)] [id number]-yvtmsairw-bnhsnaeb 1 inh INHALATION QAM 01/04/20 01/17/20 History [Trelegy Ellipta] furosemide 80 mg PO QAM 01/04/20 01/17/20 History lisinopril 10 mg PO QAM 01/04/20 01/17/20 History omeprazole 20 mg PO QAM 01/04/20 01/17/20 History potassium chloride 20 meq PO QAM 01/04/20 01/17/20 History prednisone 10 mg PO QAM 01/04/20 01/17/20 History rivaroxaban [Xarelto] 20 mg PO QAM 01/04/20 01/17/20 History rosuvastatin 40 mg PO QAM 01/04/20 01/17/20 History metoprolol succinate 100 mg PO QAM 01/17/20 01/17/20 History Patient History Medical History Anemia no known hx of blood transfusions per patient Atrial fibrillation CAD (coronary artery disease) stent x 1 (2007) Carotid artery stenosis < 50% B/L ICA stenosis per 08/2019 carotid duplex Chronic back pain Chronic steroid use chronic x 1.5 years (for right torn meniscus)- prednisone 10mg daily Congestive heart failure COPD (chronic obstructive pulmonary disease) Degenerative disc disease Depression Emphysema lung stage 3, follows with [facility] Pulmonary, stable GERD (gastroesophageal reflux disease) Hyperlipidemia Hypertension Myocardial Infarction 2007, follows with [facility] Cardiology ([place]) Obesity Osteoarthritis Pulmonary embolism (approximately 2017) x2 Surgical History History of cardiac cath 2007 (stent x1) History of colonoscopy S/P lumbar fusion L4-L5-S1 Family History Other Heart disease No family history of adverse response to anesthesia Social History Smoking Status: Current every day smoker Tobacco Type: Cigarettes Years Smoked: 40; Cigarettes Per Day: 10; Second Hand Exposure: Yes; Do You Dip or Chew Tobacco: No; Tobacco Cessation Education Requested by Patient: No Hx Alcohol Use: Yes Alcohol type: other Alcohol Intake Frequency: 2-3 x/Week Alcohol Intake Frequency Comment: 3 drinks liquor 2-3x/week Hx Substance Use: No Preferred Language: French Communication Ability: Effective 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 Beliefs That Will Affect Care: None Current Living Situation: Alone Other Information That Helps Us Care for You: No Feels Safe at Home: Yes Assistive Devices: Glasses and Oxygen - Continuous Review of Systems Review of Systems: All systems reviewed & are unremarkable except as noted in HPI & below Physical Exam Respiratory: able to speak in complete sentences; no cough and not tachypneic Neurologic: Speech / Cognition: normal speech, no expressive aphasia and normal cognition Psychiatric: Orientation: alert and oriented x 3 Results & Data ([facility]) Vital Signs (Past 12 Hours) Vital Signs Temp Pulse Pulse Resp BP BP Pulse Ox 01/17/20 15:26 36.6 C 60 22 94/60 L 96 01/17/20 14:16 119 H 19 105/65 92 01/17/20 14:15 106 H 15 97 01/17/20 14:12 94 H 20 98/54 L 98 01/17/20 14:01 100 H 18 97 01/17/20 14:00 102 H 17 100/69 97 01/17/20 13:45 94 H 16 98 01/17/20 13:37 92 H 16 103/69 99 01/17/20 13:36 100 H 22 103/69 99 01/17/20 13:30 104 H 17 91/56 L 98 01/17/20 13:15 101 H 16 97 01/17/20 13:13 96 H 98 H 16 112/66 112/66 97 01/17/20 13:00 90 16 93 01/17/20 12:47 104 H 123/63 01/17/20 12:45 100 H 17 97 01/17/20 12:30 100 H 16 97 01/17/20 12:28 36.8 C 109 H 18 123/63 87 L 01/17/20 12:26 113 H 22 98 01/17/20 12:24 125 H 18 123/63 96 (1) CAD (coronary artery disease) Associated angina: without angina Coronary Disease-Associated Artery/Lesion type: minto artery [place] vs. transplanted heart: minto heart Qualified Code(s): I25.10 - Atherosclerotic heart disease of minto coronary artery withou t angina pectoris
[2020-01-17] MEDS ORDERED: ALBUTEROL 0.083% NEBU SOLN 3 ML VIAL INH PRN (16:00)
[2020-01-17] MEDS ORDERED: FUROSEMIDE 20 MG in SYRINGE 0 ML IV SCH (16:00)
[2020-01-17] MEDS ORDERED: REMDESIVIR 200 MG in SODIUM CHLORIDE 0.9% 210 ML IV ONE (16:00)
[2020-01-17] MEDS: SODIUM CHLORIDE 0.9% 10ML FLUSH IV SCH (18:27)
[2020-01-17] MEDS: METOPROLOL TARTRATE 50 MG TAB PO SCH (20:21)
[2020-01-17 20:28] LABS: BUN Creatinine Ratio 10.1 (10-20); Calcium 8.3 mg/dl (8.5-10.1); Creatinine Clr Calc Pharmacy 64.5 ml/min; Est GFR (Non-African American) 42.3; Potassium 4.3 mmol/L (3.5-5.1)
--- NOTE | 2020-01-17 21:54 | Electrocardiogram Report ---
Test Reason : Blood Pressure : / mmHG Vent. Rate : 119 BPM Atrial Rate : 102 BPM P-R Int : 000 ms QRS Dur : 082 ms QT Int : 372 ms P-R-T Axes : 000 -40 057 degrees QTc Int : 523 ms Atrial fibrillation with rapid ventricular response Left axis deviation Nonspecific ST abnormality Prolonged QT Abnormal ECG No previous ECGs available Confirmed by Rafa Michelle ([id number]) on 01/17/2020 9:54:14 PM Referred By: Confirmed By:Rafa Michelle
[2020-01-17] MEDS: ENOXAPARIN 150 MG/ML SYR SQ SCH (22:31)
[2020-01-17 22:42] LABS: Appearance Urine Clear (Clear); Bilirubin Urine Negative (Negative); Blood Urine 1+ (Negative); Color Urine Yellow; Glucose Urine UA Negative (Negative); Ketones Urine Negative (Negative); Leukocyte Esterase Urine Negative (Negative); Nitrite Urine Negative (Negative); Protein Urine Trace (Negative); Specific Gravity Urine 1.025 (1.000-1.030); Urobilinogen Urine Negative (Negative)
[2020-01-17 22:51] LABS: Epithelial Cell Urine 0-5 /lpf (0-5)
[2020-01-17 22:52] LABS: Amorphous Sediment Urine Present (None Prsent); Bacteria Urine Negative (Negative); Hyaline Casts Urine 0-5 /lpf (0-5); RBC Urine 0-4 /hpf (0-4); WBC Urine 0-5 /hpf (0-5)
[2020-01-18] MEDS: METOPROLOL TARTRATE 50 MG TAB PO SCH ×3 (05:41→21:19)
[2020-01-18] MEDS ORDERED: ACETAMINOPHEN 325 MG TAB PO PRN (07:05)
[2020-01-18 07:12] LABS: Hematocrit (blood only) 44.4 % (42-52); Hemoglobin 12.7 g/dL (14.0-18.0); Mean Corpuscular Hemoglobin 24.6 pg (25-34); Mean Corpuscular Hgb Conc 28.6 g/dL (32-36); Mean Platelet Volume 9.8 fL (7.4-10.4); Platelet Count 133 K/uL (130-400); RDW Coefficient of Variation 22.9 % (11.5-14.5); Red Blood Count 5.16 M/uL (4.7-6.1)
[2020-01-18 07:29] LABS: BUN Creatinine Ratio 14.6 (10-20); Calcium 8.2 mg/dl (8.5-10.1); Creatinine Clr Calc Pharmacy 82.6 ml/min; Est GFR (African American) 67.8; Est GFR (Non-African American) 58.5; Magnesium 2.6 mg/dl (1.8-2.4); Potassium 4.4 mmol/L (3.5-5.1)
[2020-01-18 07:39] LABS: Albumin Globulin Ratio 0.8 (0.9-2); Bilirubin,Total 0.5 mg/dl (0.2-1); Globulin 3.6 gm/dl (2.5-4.0); Thyroid Stimulating Hormone 0.175 uIu/ml (0.300-4.500); Total Protein 6.6 gm/dl (6.4-8.2)
[2020-01-18] MEDS: UMECLIDINIUM/VILANTEROL 62.5/25MCG 7 PUFFS/INHALER INH SCH (08:26)
[2020-01-18] MEDS: FLUTICASONE FUROATE 100MCG 14 PUFFS/INHALER INH SCH (08:27)
[2020-01-18] MEDS: PANTOprazole 40 MG TAB PO SCH (08:27)
[2020-01-18] MEDS: ASPIRIN 81 MG ECTAB PO SCH (08:27)
[2020-01-18] MEDS: FUROSEMIDE 80 MG TAB PO SCH (08:29)
[2020-01-18] MEDS: lisinopril 10 MG TAB PO SCH (08:29)
[2020-01-18] MEDS: EZETIMIBE 10 MG TABLET PO SCH (08:29)
[2020-01-18] MEDS: CYANOCOBALAMIN 500 MCG TABLET (VITAMIN B-12) PO SCH (08:29)
[2020-01-18] MEDS: FERROUS SULFATE 325 MG TAB PO SCH (08:30)
[2020-01-18] MEDS: POTASSIUM CHLORIDE CRTAB 20 MEQ TABCR PO SCH (08:30)
[2020-01-18] MEDS: DULoxetine HCL 60 MG CAP PO SCH (08:30)
[2020-01-18] MEDS: ROSUVASTATIN CALCIUM 20 MG TAB PO SCH (08:30)
[2020-01-18] MEDS: DEXAMETHASONE SOD PHOSPHATE 6 MG in SYRINGE 0 ML IV SCH (08:31)
[2020-01-18] MEDS ORDERED: METOPROLOL SUCC 50MG EXT REL TAB PO SCH (09:00)
[2020-01-18] MEDS ORDERED: NON-FORMULARY MEDICATION (Fluticasone-Umeclidin-Vilanter [Trelegy Ellipta] 200-62.5-25 mcg INH SCH (09:00)
[2020-01-18] MEDS ORDERED: DEXAMETHASONE SOD INJ 10 MG/ML VIAL IV SCH (09:00)
[2020-01-18 10:15] LABS: Adenovirus PCR Not Detected (NotDetected); Bordetella parapertussis PCR Not Detected (NotDetected); Bordetella pertussis PCR Not Detected (NotDetected); Chlamydia pneumoniae PCR Not Detected (NotDetected); Coronavirus 229E PCR Not Detected (NotDetected); Coronavirus HKU1 PCR Not Detected (NotDetected); Coronavirus NL63 PCR Not Detected (NotDetected); Coronavirus OC43PCR Not Detected (NotDetected); Human Metapneumovirus PCR Not Detected (NotDetected); Influenza A PCR Not Detected (NotDetected); Influenza B PCR Not Detected (NotDetected); Mycoplasma pneumoniae PCR Not Detected (NotDetected); Parainfluenza Virus 1 PCR Not Detected (NotDetected); Parainfluenza Virus 2 PCR Not Detected (NotDetected); Parainfluenza Virus 3 PCR Not Detected (NotDetected); Parainfluenza Virus 4 PCR Not Detected (NotDetected); Respiratory Syncytial VirusPCR Not Detected (NotDetected); Rhinovirus/Enterovirus PCR Not Detected (NotDetected)
[2020-01-18 10:19] LABS: Coronavirus CoV-2 (COVID19)PCR DETECTED (NotDetected)
--- NOTE | 2020-01-18 11:11 | Cardiology Progress Note ---
Date of Service January 18, 2020 Assessment & Plan (1) Atrial fibrillation with rapid ventricular response: (2) Chronic diastolic heart failure: (3) CAD (coronary artery disease): (4) Elevated troponin I level: (5) COVID-19: (6) Hypoxia: 64-year-old patient with hypoxia and COVID-19 infection. Heart rate improved with titration of metoprolol to 50 mg 3 times daily. Patient anticoagulated chronically with Xarelto, however, currently treated with subcutaneous Lovenox per primary service. Patient without subjective shortness of breath, however, hypoxia noted and mild congestion on admission chest x-ray. Continue Lasix to 80 mg daily. Follow fluid balance, electrolytes, and daily GFR. Elevated troponin secondary to hypoxia and atrial fibrillation with rapid ventricular response. No evidence of acute coronary syndrome currently. No need for repeat echocardiogram with recent studies noted above including Lexiscan nuclear stress test 12/2019. Admission and Anticipated Discharge Date Admission Date: January 17, 2020 Subjective Patient evaluated via telephone. Denies chest pain, palpitations, or shortness of breath. No cough, wheezing, or sputum production. Denies orthopnea or PND. Chronic edema unchanged. Telemetry demonstrates atrial fibrillation with average heart rate in the 90s overnight, currently low 100s. Review of Systems Review of Systems: All systems reviewed & are unremarkable except as noted in HPI & below Physical Exam Respiratory: able to speak in complete sentences; no cough and not tachypneic Neurologic: Speech / Cognition: normal speech, no expressive aphasia and normal cognition Psychiatric: Orientation: alert and oriented x 3 Results & Data ([facility]) Vital Signs (Past 12 Hours) Vital Signs Temp Pulse Pulse Resp BP BP Pulse Ox 01/18/20 08:23 36.4 C L 70 18 108/70 92 01/18/20 07:15 87 01/18/20 05:39 90 118/80 01/18/20 04:00 36.5 C 82 18 109/76 96 01/18/20 00:50 36.5 C 86 18 130/84 96 01/18/20 00:25 36.9 C 71 19 132/85 94 01/18/20 00:24 36.9 C 91 H 19 132/85 94 01/17/20 23:25 36.4 C L 68 18 117/64 95 (1) CAD (coronary artery disease) Coronary Disease-Associated Artery/Lesion type: [place] artery [place] vs. transplanted heart: [place] heart Associated angina: without angina Qualified Code(s): I25.10 - Atherosclerotic heart disease of [place] coronary artery without angina pectoris
--- NOTE | 2020-01-18 11:43 | Hospitalist Progress Note ---
Date of Service January 18, 2020 Assessment & Plan (1) Hypoxia: -This is a 64-year-old male with PMH of CAD (s/p stent in 2007) permanent atrial fibrillation anticoagulated on Xarelto, chronic diastolic heart failure, hypertension, tobacco use disorder, COPD and other medical problems listed below who presents to the hospital on 01/17/2020 after initial plans for right knee replacement but was subsequently found to be hypoxic with being 87% oxygen saturation while on room air, atrial fibrillation with rapid ventricular response to 119 bpm, and also positive COVID-19 screening test on 01/17/2020 on evaluation in the ED -the 01/17/2020 CXR with airspace opacities at the right lung base, but the radiology read was equivocal "Right basilar opacities are indeterminant and could represent scarring/atelectasis versus an infectious/inflammatory pneumonitis" -since there was positive COVID-19 test and hypoxia, patient initiated on dexamethasone 6 mg IV daily and remdesivir daily and also transfused 1 unit of convalescent plasma -procalcitonin was negative and respiratory antibiotics was deemed needed by admitting hospitalist team -patient also had elevated BNP as 1163, and received IV Lasix 80 mg -as of 01/18/2020, patient continues to be on nasal cannula 2 liter/min. Patient also have Biofire test on 01/18/2020 that confirmed positive COVID-19 exposure but ruled out influenza or other respiratory viruses that is tested by the panel. Patient reports that he did not have flu vaccine this year. He also reports that while on nasal cannula oxygen in the hospital he feels subjectively well with his breathing and did have any dyspnea symptoms previous to the hospital presentation. He notes that has has been on room air in the recent past and that he had better O2 saturations when on room air in previous doctor clinic visits. Patient denies other symptoms - no pain, no fevers, no nausea, no vomiting, no dizziness, no headache but given recent hypoxia and COVID positive status, patient agrees for further treatment while in the hospital (2) COVID-19: -management as above (3) Atrial fibrillation with rapid ventricular response: Abnormal Thyroid Function Test -Known permanent atrial fibrillation, follows with [facility] cardiology in [place] -TSH low as 0.175 uIu/ml on 01/17/2020 but with normal total T4 and free T4 levels -prior to 01/17/2020, patient's Xarelto had been held in anticipation of knee surgery and also was on less metoprolol the day before hospital presentation -currently titrating up from patient's home dose metoprolol is helping with heart rate control, continue to monitor on telemetry -admitting hospitalist replaced home dose Xarelto as Lovenox 1 mg/kg BID because of unclear status of whether patient would be assessed for knee surgery on this admission and wanted something temporary -since it is unlikely that patient will have knee surgery on this admission with recent positive COVID-19 tests, will resume home dose Xarelto as 20 mg daily instead of using Lovenox (4) Acute exacerbation of CHF (congestive heart failure): -Preop TTE from [facility] on 01/10/20 with EF 50%, left ventricular systolic function is borderline low. Was in Afib with RVR with rate ranging from 90 to 120 bpm during the study. The right ventricular cavity is mildly dilated. The right ventricular systolic function is mildly reduced. Mild mitral regurgitation is present. Mild tricuspid regurgitation is present. There is aortic valve sclerosis without stenosis. Trace aortic regurgitation is present -Appears overloaded clinically on arrival as per admission notes and was given 80mg IV Lasix -currently on home dose Lasix oral 80 mg daily -repeat CXR on 01/19/2020 (5) CAD (coronary artery disease): H/o stent in 2007 -No chest pain or acute ST changes on admission. initial Troponin mildly elevated at 0.081 in setting -Continue aspirin, lisinopril, beta blockers, statin (6) COPD (chronic obstructive pulmonary disease): -ad terminal makeup operator tobacco use, still smoking half pack per day. Declines nicotine patch -Continue Trelegy Ellipta (7) Hypertension: -on metoprolol and lisinopril (8) Chronic steroid use: -as outpatient, he was taking taking prednisone 10mg daily for knee pain. hold the home dose prednisone while receiving IV Dexamethasone (9) Depression: -Continue Cymbalta (10) Hyperlipidemia: -Continue statin, ezetimibe DVT Ppx: resume home dose Xarelto as 20 mg daily instead of using Lovenox Code status: FULL Admission and Anticipated Discharge Date Admission Date: January 17, 2020 Subjective -as of 01/18/2020, patient continues to be on nasal cannula 2 liter/min. Patient also have Biofire test on 01/18/2020at confirmed positive COVID-19 exposure but ruled out influenza or otehr respiratory viruses that is tested by the panel. Patient reports that he did not have flu vaccine this year. He also reports that while on nasal cannula oxygen in the hospital he feels subjectively well with his breathing and did have any dyspnea symptoms previous to the hospital presentation. He notes that has has been on room air in the recent past and that he had better O2 saturations when on room air in previous doctor clinic visits. Patient denies other symptoms - no pain, no fevers, no nausea, no vomiting, no dizziness, no headache but given recent hypoxia and COVID positive status, patient agrees for further treatment while in the hospital Review of Systems Review of Systems: All systems reviewed & are unremarkable except as noted in Subjective Physical Exam Constitutional: cooperative Eyes: PERRL, conjunctivae normal, anicteric sclerae EOM intact bilaterally ENMT: external ear and nose normal, oropharynx normal Neck: normal visual inspection Respiratory: normal respiratory effort (on nasal cannula 2 liters/min) Cardiovascular: Rate/Rhythm: regular rate and regular rhythm Gastrointestinal (Abdomen): normal bowel sounds, soft, nontender, no hepatosplenomegaly Musculoskeletal: Head/Neck/Chest: normocephalic and head atraumatic Neurologic: PERRL, EOMI, accommodation nl, no face palsy, no dysarthria CN's II-XI intact bilaterally Psychiatric: A+Ox3, euthymic affect Results & Data Results & Data ([facility]) Vital Signs (Past 12 Hours) Vital Signs Temp Pulse Pulse Resp BP BP Pulse Ox 01/18/20 08:23 36.4 C L 70 18 108/70 92 01/18/20 07:15 87 01/18/20 05:39 90 118/80 01/18/20 04:00 36.5 C 82 18 109/76 96 01/18/20 00:50 36.5 C 86 18 130/84 96 01/18/20 00:25 36.9 C 71 19 132/85 94 01/18/20 00:24 36.9 C 91 H 19 132/85 94 (1) Acute exacerbation of CHF (congestive heart failure) Heart failure type: systolic Qualified Code(s): I50.23 - Acute on chronic systolic (congestive) heart failure (2) CAD (coronary artery disease) Associated angina: without angina Coronary Disease-Associated Artery/Lesion type: [place] artery [place] vs. transplanted heart: [place] heart Qualified Code(s): I25.10 - Atherosclerotic heart disease of [place] coronary artery without angina pectoris
[2020-01-18] MEDS ORDERED: RIVAROXABAN 20 MG TAB PO ONE (12:27)
[2020-01-18] MEDS: ENOXAPARIN 150 MG/ML SYR SQ SCH (13:26)
[2020-01-18] MEDS: REMDESIVIR 100 MG in SODIUM CHLORIDE 0.9% 230 ML IV SCH (16:54)
[2020-01-18] MEDS: SODIUM CHLORIDE 0.9% 10ML FLUSH IV SCH (17:54)
[2020-01-19] MEDS: METOPROLOL TARTRATE 50 MG TAB PO SCH (05:54)
[2020-01-19 08:10] LABS: BUN Creatinine Ratio 17.2 (10-20); Calcium 8.3 mg/dl (8.5-10.1); Est GFR (African American) 69.1; Est GFR (Non-African American) 59.6; Magnesium 2.5 mg/dl (1.8-2.4)
[2020-01-19 08:12] LABS: Albumin Globulin Ratio 0.8 (0.9-2); Bilirubin,Total 0.4 mg/dl (0.2-1); Globulin 3.6 gm/dl (2.5-4.0); Total Protein 6.6 gm/dl (6.4-8.2)
[2020-01-19 08:20] LABS: Hematocrit (blood only) 45.9 % (42-52); Hemoglobin 13.1 g/dL (14.0-18.0); Mean Corpuscular Hemoglobin 25.1 pg (25-34); Mean Corpuscular Hgb Conc 28.5 g/dL (32-36); Mean Corpuscular Volume 88.1 fL (80-100); Mean Platelet Volume 10.1 fL (7.4-10.4); Platelet Count 140 K/uL (130-400); RDW Coefficient of Variation 22.6 % (11.5-14.5); RDW Standard Deviation 73.5 fL (36.4-46.3); Red Blood Count 5.21 M/uL (4.7-6.1); White Blood Count 10.35 K/uL (4.8-10.8)
[2020-01-19] MEDS: DEXAMETHASONE SOD PHOSPHATE 6 MG in SYRINGE 0 ML IV SCH (08:37)
[2020-01-19] MEDS: UMECLIDINIUM/VILANTEROL 62.5/25MCG 7 PUFFS/INHALER INH SCH (08:37)
[2020-01-19] MEDS: FLUTICASONE FUROATE 100MCG 14 PUFFS/INHALER INH SCH (08:37)
[2020-01-19] MEDS: EZETIMIBE 10 MG TABLET PO SCH (08:39)
[2020-01-19] MEDS: RIVAROXABAN 20 MG TAB PO SCH (08:39)
[2020-01-19] MEDS: DULoxetine HCL 60 MG CAP PO SCH (08:39)
[2020-01-19] MEDS: ASPIRIN 81 MG ECTAB PO SCH (08:40)
[2020-01-19] MEDS: ROSUVASTATIN CALCIUM 20 MG TAB PO SCH (08:40)
[2020-01-19] MEDS: POTASSIUM CHLORIDE CRTAB 20 MEQ TABCR PO SCH (08:40)
[2020-01-19] MEDS: FERROUS SULFATE 325 MG TAB PO SCH (08:40)
[2020-01-19] MEDS: lisinopril 10 MG TAB PO SCH (08:41)
[2020-01-19] MEDS: CYANOCOBALAMIN 500 MCG TABLET (VITAMIN B-12) PO SCH (08:41)
[2020-01-19] MEDS: FUROSEMIDE 80 MG TAB PO SCH (08:41)
[2020-01-19] MEDS: PANTOprazole 40 MG TAB PO SCH (08:41)
--- NOTE | 2020-01-19 10:54 | XRay Report ---
XR chest 1V portable CLINICAL HISTORY: follow up lung infiltrates COMPARISON STUDY: Chest radiograph January 17, 2020. FINDINGS: Lung volumes are normal. There is no pneumothorax or pleural effusion. Cardiomegaly is note d. Right basilar airspace opacity is similar to prior exam. There is no evidence for pulmonary edema. IMPRESSION: No significant change in right basilar opacity. An infectious process is favored althoug h atelectasis could appear similar. ACT 112: Negative or not required by law. Electronically signed by: Temo Craig M.D. 01/19/2020 10:52 AM
[2020-01-19] MEDS ORDERED: METOPROLOL TARTRATE 100 MG TAB PO ONE (11:44)
--- NOTE | 2020-01-19 12:52 | Hospitalist Progress Note ---
Date of Service January 19, 2020 Assessment & Plan (1) Hypoxia: -This is a 64-year-old male with PMH of CAD (s/p stent in 2007) permanent atrial fibrillation anticoagulated on Xarelto, chronic diastolic heart failure, hypertension, tobacco use disorder, COPD and other medical problems listed below who presents to the hospital on 01/17/2020 after initial plans for right knee replacement but was subsequently found to be hypoxic with being 87% oxygen saturation while on room air, atrial fibrillation with rapid ventricular response to 119 bpm, and also positive COVID-19 screening test on 01/17/2020 on evaluation in the ED -the 01/17/2020 CXR with airspace opacities at the right lung base, but the radiology read was equivocal "Right basilar opacities are indeterminant and could represent scarring/atelectasis versus an infectious/inflammatory pneumonitis" -since there was positive COVID-19 test and hypoxia, patient initiated on dexamethasone 6 mg IV daily and remdesivir daily and also transfused 1 unit of convalescent plasma -procalcitonin was negative and respiratory antibiotics was deemed needed by admitting hospitalist team -patient also had elevated BNP as 1163, and received IV Lasix 80 mg -as of 01/18/2020, patient continues to be on nasal cannula 2 liter/min. Patient also have Biofire test on 01/18/2020 that confirmed positive COVID-19 exposure but ruled out influenza or other respiratory viruses that is tested by the panel. Patient reports that he did not have flu vaccine this year. He also reports that while on nasal cannula oxygen in the hospital he feels subjectively well with his breathing and did have any dyspnea symptoms previous to the hospital presentation. He notes that has has been on room air in the recent past and that he had better O2 saturations when on room air in previous doctor clinic visits. Patient denies other symptoms - no pain, no fevers, no nausea, no vomiting, no dizziness, no headache but given recent hypoxia and COVID positive status, patient agrees for further treatment while in the hospital -01/19/2020: patient continues to be on 2 liters/min nasal cannula. Patient denies acute dyspnea. He showed whitish sputum which is vicious that he collected in a cup. Patient remains afebrile even though patient's previous pro calcitonin were negative, patient to be started on ceftriaxone and doxycycline trial to see if bacterial antibiotics can help decrease oxygen requirements. Patient's hearts rates with atrial fibrillation and more tachycardic today. He denies chest pain or palpitations. Will increase the metoprolol dosing. Patient denies other symptoms on review of systems (2) COVID-19: -management as above (3) Atrial fibrillation with rapid ventricular response: Abnormal Thyroid Function Test -Known permanent atrial fibrillation, follows with [facility] cardiology in [place] -TSH low as 0.175 uIu/ml on 01/17/2020 but with normal total T4 and free T4 levels -prior to 01/17/2020, patient's Xarelto had been held in anticipation of knee surgery and also was on less metoprolol the day before hospital presentation -currently titrating up from patient's home dose metoprolol is helping with heart rate control, continue to monitor on telemetry -admitting hospitalist replaced home dose Xarelto as Lovenox 1 mg/kg BID because of unclear status of whether patient would be assessed for knee surgery on this admission and wanted something temporary -since it is unlikely that patient will have knee surgery on this admission with recent positive COVID-19 tests, resumed home dose Xarelto as 20 mg daily on 01/18/2020 instead of using Lovenox (4) Acute exacerbation of CHF (congestive heart failure): -Preop TTE from [facility] on 01/10/20 with EF 50%, left ventricular systolic function is borderline low. Was in Afib with RVR with rate ranging from 90 to 120 bpm during the study. The right ventricular cavity is mildly dilated. The right ventricular systolic function is mildly reduced. Mild mitral regurgitation is present. Mild tricuspid regurgitation is present. There is aortic valve sclerosis without stenosis. Trace aortic regurgitation is present -Appears overloaded clinically on arrival as per admission notes and was given 80mg IV Lasix -currently on home dose Lasix oral 80 mg daily -repeat CXR on 01/19/2020: Lung volumes are normal. There is no pneumothorax or pleural effusion. Cardiomegaly is noted. Right basilar airspace opacity is similar to prior exam. There is no evidence for pulmonary edema. (5) CAD (coronary artery disease): H/o stent in 2007 -No chest pain or acute ST changes on admission. 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 Declines nicotine patch -Continue Trelegy Ellipta (7) Hypertension: -on metoprolol and lisinopril (8) Chronic steroid use: -as outpatient, he was taking taking prednisone 10mg daily for knee pain. hold the home dose prednisone while receiving IV Dexamethasone (9) Depression: -Continue Cymbalta (10) Hyperlipidemia: -Continue statin, ezetimibe DVT Ppx: Xarelto as 20 mg daily Code status: FULL Admission and Anticipated Discharge Date Admission Date: January 17, 2020 Subjective patient continues to be on 2 liters/min nasal cannula. Patient denies acute dyspnea. He showed whitish sputum which is vicious that he collected in a cup. Patient remains afebrile even though patient's previous procalcitonin were ne gative, patient to be started on ceftriaxone and doxycycline trial to see if bacterial antibiotics can help decrease oxygen requirements. Patient's hearts rates with atrial fibrillation and more tachycardic today. He denies chest pain or palpitations. Will increase the metoprolol dosing. Patient denies other symptoms on review of systems Review of Systems Review of Systems: All systems reviewed & are unremarkable except as noted in Subjective Physical Exam Constitutional: + obese Eyes: PERRL, conjunctivae normal, anicteric sclerae EOM intact bilaterally ENMT: external ear and nose normal, oropharynx normal Neck: normal visual inspection Respiratory: normal respiratory effort Cardiovascular: Rate/Rhythm: + tachycardic and + irregularly irregular Gastrointestinal (Abdomen): normal bowel sounds, soft, nontender, no hepatosplenomegaly Musculoskeletal: Head/Neck/Chest: normocephalic and head atraumatic Neurologic: moves all extremities and awake Psychiatric: A+Ox3, euthymic affect Results & Data Results & Data ([facility]) Vital Signs (Past 12 Hours) Vital Signs Temp Pulse Pulse Resp BP Pulse Ox 01/19/20 11:46 37.8 C H 126 H 18 98/71 L 97 01/19/20 10:34 110 H 01/19/20 07:32 36.7 C 103 H 18 123/89 96 01/19/20 04:58 36.3 C L 106 H 22 155/63 H 95 01/19/20 02:10 88 (1) Acute exacerbation of CHF (congestive heart failure) Heart failure type: systolic Qualified Code(s): I50.23 - Acute on chronic systolic (congestive) heart failure (2) CAD (coronary artery disease) Coronary Disease-Associated Artery/Lesion type: [place] artery [place] vs. transplanted heart: [place] heart Associated angina: without angina Qualified Code(s): I25.10 - Atherosclerotic heart disease of [place] coronary artery without angina pectoris
[2020-01-19] MEDS: cefTRIAXone SODIUM 2,000 MG in DEXTROSE 5% 50 ML IV SCH (13:48)
[2020-01-19] MEDS: DOXYCYCLINE HYCLATE 100 MG in DEXTROSE 5% 100 ML IV SCH ×2 (13:49→20:00)
[2020-01-19] MEDS: REMDESIVIR 100 MG in SODIUM CHLORIDE 0.9% 230 ML IV SCH (18:01)
[2020-01-19] MEDS: SODIUM CHLORIDE 0.9% 10ML FLUSH IV SCH (19:28)
[2020-01-19] MEDS ORDERED: METOPROLOL TARTRATE 100 MG TAB PO SCH (21:00)
--- NOTE | 2020-01-19 22:19 | Electrocardiogram Report ---
Test Reason : Blood Pressure : / mmHG Vent. Rate : 094 BPM Atrial Rate : 105 BPM P-R Int : 000 ms QRS Dur : 082 ms QT Int : 390 ms P-R-T Axes : 000 -27 061 degrees QTc Int : 487 ms Atrial fibrillation Abnormal ECG When compared with ECG of 17-JAN-2020 12:23, No significant change was found Confirmed by Ronal Paz [id number]) on 01/19/2020 10:19:02 PM Referred By: REFERRED SELF Confirmed By:Ronal Paz
[2020-01-20 07:30] LABS: Albumin Level 2.9 gm/dl (3.4-5.0); Calcium 8.8 mg/dl (8.5-10.1); Est GFR (African American) 69.1; Est GFR (Non-African American) 59.6; Magnesium 2.1 mg/dl (1.8-2.4); Potassium 3.4 mmol/L (3.5-5.1)
[2020-01-20 07:32] LABS: Albumin Globulin Ratio 0.9 (0.9-2); Bilirubin,Total 0.5 mg/dl (0.2-1); Globulin 3.3 gm/dl (2.5-4.0); Total Protein 6.2 gm/dl (6.4-8.2)
[2020-01-20 07:34] LABS: Hematocrit (blood only) 44.2 % (42-52); Hemoglobin 12.5 g/dL (14.0-18.0); Mean Corpuscular Hemoglobin 24.6 pg (25-34); Mean Corpuscular Hgb Conc 28.3 g/dL (32-36); Mean Platelet Volume 10.4 fL (7.4-10.4); Platelet Count 133 K/uL (130-400); RDW Coefficient of Variation 22.4 % (11.5-14.5); RDW Standard Deviation 72.2 fL (36.4-46.3); Red Blood Count 5.08 M/uL (4.7-6.1); White Blood Count 4.99 K/uL (4.8-10.8)
[2020-01-20] MEDS: FLUTICASONE FUROATE 100MCG 14 PUFFS/INHALER INH SCH (08:33)
[2020-01-20] MEDS: EZETIMIBE 10 MG TABLET PO SCH (08:34)
[2020-01-20] MEDS: UMECLIDINIUM/VILANTEROL 62.5/25MCG 7 PUFFS/INHALER INH SCH (08:34)
[2020-01-20] MEDS: FUROSEMIDE 80 MG TAB PO SCH (08:35)
[2020-01-20] MEDS: CYANOCOBALAMIN 500 MCG TABLET (VITAMIN B-12) PO SCH (08:35)
[2020-01-20] MEDS: ROSUVASTATIN CALCIUM 20 MG TAB PO SCH (08:35)
[2020-01-20] MEDS: RIVAROXABAN 20 MG TAB PO SCH (08:35)
[2020-01-20] MEDS: lisinopril 10 MG TAB PO SCH (08:35)
[2020-01-20] MEDS: FERROUS SULFATE 325 MG TAB PO SCH (08:35)
[2020-01-20] MEDS: ASPIRIN 81 MG ECTAB PO SCH (08:35)
[2020-01-20] MEDS: DULoxetine HCL 60 MG CAP PO SCH (08:35)
[2020-01-20] MEDS: POTASSIUM CHLORIDE CRTAB 20 MEQ TABCR PO SCH (08:35)
[2020-01-20] MEDS: METOPROLOL TARTRATE 100 MG TAB PO SCH ×2 (08:36→20:24)
[2020-01-20] MEDS: PANTOprazole 40 MG TAB PO SCH (08:36)
[2020-01-20] MEDS: DOXYCYCLINE HYCLATE 100 MG in DEXTROSE 5% 100 ML IV SCH ×2 (08:40→20:24)
[2020-01-20] MEDS: DEXAMETHASONE SOD PHOSPHATE 6 MG in SYRINGE 0 ML IV SCH (08:45)
--- NOTE | 2020-01-20 13:24 | Hospitalist Progress Note ---
Date of Service January 20, 2020 Assessment & Plan (1) Hypoxia: -This is a 64-year-old male with PMH of CAD (s/p stent in 2007) permanent atrial fibrillation anticoagulated on Xarelto, chronic diastolic heart failure, hypertension, tobacco use disorder, COPD and other medical problems listed below who presents to the hospital on 01/17/2020 after initial plans for right knee replacement but was subsequently found to be hypoxic with being 87% oxygen saturation while on room air, atrial fibrillation with rapid ventricular response to 119 bpm, and also positive COVID-19 screening test on 01/17/2020 on evaluation in the ED -the 01/17/2020 CXR with airspace opacities at the right lung base, but the radiology read was equivocal "Right basilar opacities are indeterminant and could represent scarring/atelectasis versus an infectious/inflammatory pneumonitis" -since there was positive COVID-19 test and hypoxia, patient initiated on dexamethasone 6 mg IV daily and remdesivir daily and also transfused 1 unit of convalescent plasma -procalcitonin was negative and respiratory antibiotics was deemed needed by admitting hospitalist team -patient also had elevated BNP as 1163, and received IV Lasix 80 mg -as of 01/18/2020, patient continues to be on nasal cannula 2 liter/min. Patient also have [employer] test on 01/18/2020 that confirmed positive COVID-19 exposure but ruled out influenza or other respiratory viruses that is tested by the panel. Patient reports that he did not have flu vaccine this year. He also reports that while on nasal cannula oxygen in the hospital he feels subjectively well with his breathing and did have any dyspnea symptoms previous to the hospital presentation. He notes that has has been on room air in the recent past and that he had better O2 saturations when on room air in previous doctor clinic visits. Patient denies other symptoms - no pain, no fevers, no nausea, no vomiting, no dizziness, no headache but given recent hypoxia and COVID positive status, patient agrees for further treatment while in the hospital -01/19/2020: patient continues to be on 2 liters/min nasal cannula. Patient denies acute dyspnea. He showed whitish sputum which is vicious that he collected in a cup. Patient remains afebrile even though patient's previous pro calcitonin were negative, patient to be started on ceftriaxone and doxycycline trial to see if bacterial antibiotics can help decrease oxygen requirements. Patient's hearts rates with atrial fibrillation and more tachycardic today. He denies chest pain or palpitations. Will increase the metoprolol dosing. Patient denies other symptoms on review of systems -01/20/2020: patient on room air. Heart rates are better controlled with current uptitration of metoprolol. Discussed with patient that if his heart rates remain well with a total of metoprolol 100 mg BID and if he remains on room air by then it would be possible that patient can be discharged. Continue other treatments of IV dexamethasone, remdesivir and IV antibiotics for now (2) COVID-19: -management as above (3) Atrial fibrillation with rapid ventricular response: Abnormal Thyroid Function Test -Known permanent atrial fibrillation, follows with [facility] cardiology in [place] -TSH low as 0.175 uIu/ml on 01/17/2020 but with normal total T4 and free T4 levels -prior to 01/17/2020, patient's Xarelto had been held in anticipation of knee surgery and also was on less metoprolol the day before hospital presentation -currently titrating up from patient's home dose metoprolol is helping with heart rate control, continue to monitor on telemetry -admitting hospitalist replaced home dose Xarelto as Lovenox 1 mg/kg BID because of unclear status of whether patient would be assessed for knee surgery on this admission and wanted something temporary -since it is unlikely that patient will have knee surgery on this admission with recent positive COVID-19 tests, resumed home dose Xarelto as 20 mg daily on 01/18/2020 instead of using Lovenox (4) Acute exacerbation of CHF (congestive heart failure): -Preop TTE from [facility] on 01/10/20 with EF 50%, left ventricular systolic function is borderline low. Was in Afib with RVR with rate ranging from 90 to 120 bpm during the study. The right ventricular cavity is mildly dilated. The right ventricular systolic function is mildly reduced. Mild mitral regurgitation is present. Mild tricuspid regurgitation is present. There is aortic valve sclerosis without stenosis. Trace aortic regurgitation is present -Appears overloaded clinically on arrival as per admission notes and was given 80mg IV Lasix -currently on home dose Lasix oral 80 mg daily -repeat CXR on 01/19/2020: Lung volumes are normal. There is no pneumothorax or pleural effusion. Cardiomegaly is noted. Right basilar airspace opacity is similar to prior exam. There is no evidence for pulmonary edema. (5) CAD (coronary artery disease): H/o stent in 2007 -No chest pain or acute ST changes on admission. initial Troponin mildly elevated at 0.081 in setting -Continue aspirin, lisinopril, beta blockers, statin (6) COPD (chronic obstructive pulmonary disease): -custodial tobacco use, still smoking half pack per day. Declines nicotine patch -Continue Trelegy Ellipta (7) Hypertension: -on metoprolol and lisinopril (8) Chronic steroid use: -as outpatient, he was taking taking prednisone 10mg daily for knee pain. hold the home dose prednisone while receiving IV Dexamethasone (9) Depression: -Continue Cymbalta (10) Hyperlipidemia: -Continue statin, ezetimibe DVT Ppx: Xarelto as 20 mg daily Code status: FULL Admission and Anticipated Discharge Date Admission Date: January 17, 2020 Subjective 01/20/2020: patient on room air. Heart rates are better controlled with current uptitration of metoprolol. Discussed with patient that if his heart rates remain well with a total of metoprolol 100 mg BID and if he remains on room air by then it would be possible that patient can be discharged. Continue other treatments of IV dexamethasone, remdesivir and IV antibiotics for now on review of systems, patient denies acute shortness of breath when on room air. no chest pain. no palpitations. no abdomen pain. no nausea. no vomiting. no other symptoms on review of systems Review of Systems Review of Systems: All systems reviewed & are unremarkable except as noted in Subjective Physical Exam Constitutional: + obese and cooperative Eyes: PERRL, conjunctivae normal, anicteric sclerae EOM intact bilaterally ENMT: external ear and nose normal, oropharynx normal Neck: normal visual inspection Respiratory: normal respiratory effort Cardiovascular: Rate/Rhythm: regular rate and + irregularly irregular Gastrointestinal (Abdomen): normal bowel sounds, soft, nontender, no hepatosplenomegaly Musculoskeletal: Head/Neck/Chest: normocephalic and head atraumatic Neurologic: PERRL, EOMI, accommodation nl, no face palsy, no dysarthria CN's II-XI intact bilaterally, moves all extremities and awake Psychiatric: A+Ox3, euthymic affect Results & Data Results & Data ([facility]) Vital Signs (Past 12 Hours) Vital Signs Temp Pulse Pulse Resp BP Pulse Ox 01/20/20 12:21 36.3 C L 78 20 112/71 92 01/20/20 09:39 96 H 01/20/20 04:00 36.4 C L 77 16 119/80 88 L (1) Acute exacerbation of CHF (congestive heart failure) Heart failure type: systolic Qualified Code(s): I50.23 - Acute on chronic systolic (congestive) heart failure (2) CAD (coronary artery disease) Coronary Disease-Associated Artery/Lesion type: [place] artery [place] vs. transplanted heart: [place] heart Associated angina: without angina Qualified Code(s): I25.10 - Atherosclerotic heart disease of [place] coronary artery without angina pectoris
[2020-01-20] MEDS: cefTRIAXone SODIUM 2,000 MG in DEXTROSE 5% 50 ML IV SCH (13:26)
[2020-01-20] MEDS: REMDESIVIR 100 MG in SODIUM CHLORIDE 0.9% 230 ML IV SCH (16:57)
[2020-01-20] MEDS: SODIUM CHLORIDE 0.9% 10ML FLUSH IV SCH (16:57)
[2020-01-21 08:19] LABS: Basophils # (auto) 0.02 K/uL (0-0.2); Basophils % (auto) 0.4 %; Eosinophils # (auto) 0.01 K/uL (0-0.5); Eosinophils % (auto) 0.2 %; Hematocrit (blood only) 48.3 % (42-52); Immature Granulocytes # (auto) 0.03 K/uL (0.00-0.02); Immature Granulocytes % (auto) 0.5 %; Lymphocytes # (auto) 1.43 K/uL (1.2-3.4); Lymphocytes % (auto) 25.8 %; Mean Corpuscular Hemoglobin 24.6 pg (25-34); Mean Corpuscular Volume 84.9 fL (80-100); Mean Platelet Volume 10.5 fL (7.4-10.4); Monocytes # (auto) 0.53 K/uL (0.11-0.59); Monocytes % (auto) 9.5 %; Neutrophils # (auto) 3.53 K/uL (1.4-6.5); Neutrophils % (auto) 63.6 %; Platelet Count 141 K/uL (130-400); RDW Coefficient of Variation 22.2 % (11.5-14.5); RDW Standard Deviation 69.3 fL (36.4-46.3); Red Blood Count 5.69 M/uL (4.7-6.1); White Blood Count 5.55 K/uL (4.8-10.8)
[2020-01-21] MEDS: FLUTICASONE FUROATE 100MCG 14 PUFFS/INHALER INH SCH (08:29)
[2020-01-21] MEDS: UMECLIDINIUM/VILANTEROL 62.5/25MCG 7 PUFFS/INHALER INH SCH (08:29)
[2020-01-21] MEDS: DEXAMETHASONE SOD PHOSPHATE 6 MG in SYRINGE 0 ML IV SCH (08:30)
[2020-01-21] MEDS: METOPROLOL TARTRATE 100 MG TAB PO SCH (08:30)
[2020-01-21] MEDS: CYANOCOBALAMIN 500 MCG TABLET (VITAMIN B-12) PO SCH (08:30)
[2020-01-21] MEDS: FERROUS SULFATE 325 MG TAB PO SCH (08:31)
[2020-01-21] MEDS: ASPIRIN 81 MG ECTAB PO SCH (08:31)
[2020-01-21] MEDS: ROSUVASTATIN CALCIUM 20 MG TAB PO SCH (08:31)
[2020-01-21] MEDS: DULoxetine HCL 60 MG CAP PO SCH (08:32)
[2020-01-21] MEDS: FUROSEMIDE 80 MG TAB PO SCH (08:32)
[2020-01-21] MEDS: POTASSIUM CHLORIDE CRTAB 20 MEQ TABCR PO SCH (08:32)
[2020-01-21] MEDS: EZETIMIBE 10 MG TABLET PO SCH (08:32)
[2020-01-21] MEDS: PANTOprazole 40 MG TAB PO SCH (08:32)
[2020-01-21] MEDS: RIVAROXABAN 20 MG TAB PO SCH (08:32)
[2020-01-21] MEDS: DOXYCYCLINE HYCLATE 100 MG in DEXTROSE 5% 100 ML IV SCH (08:35)
[2020-01-21 08:37] LABS: Albumin Level 3.2 gm/dl (3.4-5.0); Anisocytosis Present; BUN Creatinine Ratio 22.4 (10-20); Calcium 9.3 mg/dl (8.5-10.1); Creatinine Clr Calc Pharmacy 92.9 ml/min; Est GFR (African American) 78.6; Est GFR (Non-African American) 67.8; Magnesium 2.4 mg/dl (1.8-2.4); Potassium 3.9 mmol/L (3.5-5.1)
[2020-01-21 08:40] LABS: Albumin Globulin Ratio 0.9 (0.9-2); Bilirubin,Total 0.6 mg/dl (0.2-1); Globulin 3.6 gm/dl (2.5-4.0); Total Protein 6.8 gm/dl (6.4-8.2)
[2020-01-21] MEDS: lisinopril 10 MG TAB PO SCH (09:19)
[2020-01-21] MEDS ORDERED: AMOXICILLIN/CLAVULANATE 875 MG TAB PO ONE (10:15)
--- NOTE | 2020-01-21 13:31 | Hospitalist Progress Note ---
Date of Service January 21, 2020 Assessment & Plan (1) Hypoxia: -This is a 64-year-old male with PMH of CAD (s/p stent in 2007) permanent atrial fibrillation anticoagulated on Xarelto, chronic diastolic heart failure, hypertension, tobacco use disorder, COPD and other medical problems listed below who presents to the hospital on 01/17/2020 after initial plans for right knee replacement but was subsequently found to be hypoxic with being 87% oxygen saturation while on room air, atrial fibrillation with rapid ventricular response to 119 bpm, and also positive COVID-19 screening test on 01/17/2020 on evaluation in the ED -the 01/17/2020 CXR with airspace opacities at the right lung base, but the radiology read was equivocal "Right basilar opacities are indeterminant and could represent scarring/atelectasis versus an infectious/inflammatory pneumonitis" -since there was positive COVID-19 test and hypoxia, patient initiated on dexamethasone 6 mg IV daily and remdesivir daily and also transfused 1 unit of convalescent plasma -procalcitonin was negative and respiratory antibiotics was deemed needed by admitting hospitalist team -patient also had elevated BNP as 1163, and received IV Lasix 80 mg -as of 01/18/2020, patient continues to be on nasal cannula 2 liter/min. Patient also have [employer] test on 01/18/2020 that confirmed positive COVID-19 exposure but ruled out influenza or other respiratory viruses that is tested by the panel. Patient reports that he did not have flu vaccine this year. He also reports that while on nasal cannula oxygen in the hospital he feels subjectively well with his breathing and did have any dyspnea symptoms previous to the hospital presentation. He notes that has has been on room air in the recent past and that he had better O2 saturations when on room air in previous doctor clinic visits. Patient denies other symptoms - no pain, no fevers, no nausea, no vomiting, no dizziness, no headache but given recent hypoxia and COVID positive status, patient agrees for further treatment while in the hospital -01/19/2020: patient continues to be on 2 liters/min nasal cannula. Patient denies acute dyspnea. He showed whitish sputum which is vicious that he collected in a cup. Patient remains afebrile even though patient's previous pro calcitonin were negative, patient to be started on ceftriaxone and doxycycline trial to see if bacterial antibiotics can help decrease oxygen requirements. Patient's hearts rates with atrial fibrillation and more tachycardic today. He denies chest pain or palpitations. Will increase the metoprolol dosing. Patient denies other symptoms on review of systems -01/20/2020: patient on room air. Heart rates are better controlled with current uptitration of metoprolol. Discussed with patient that if his heart rates remain well with a total of metoprolol 100 mg BID and if he remains on room air by then it would be possible that patient can be discharged. Continue other treatments of IV dexamethasone, remdesivir and IV antibiotics for now 01/21/2020: (COVID-19 with hypoxia on 01/17/2020 with atrial fibrillation in rapid response. hospital medications including treatments for COVID-19 such as dexamethasone 6 mg IV daily and remdesivir daily and also transfused 1 unit of convalescent plasma, antibiotics while metoprolol was titrated up for heart rate control hypoxia at rest resolved on 01/20/2020 patient passed 2 step on 01/21/2020 and no discharge medication sent to [facility] pharmacy in [place], [place] of metoprolol tartrate 100 mg twice a day going forward of Augmentin and Doxycycline both as twice a day for next 10 days of prednisone 40 mg daily for 3 days and then 20 mg daily for 3 days. Patient can then return to usual prednisone dosing once the 6 day prednisone taper prescription is completed Patient advised to home quarantine for 10 to 14 days. When in public or around others in that timeframe, patient should wear mask at all times. Patient will need to make follow up appointments with his medical doctors. A teleconference appointment with his primary care doctor in the next 7 days is advised. Patient will need to make further appointments for future cardiology visit and any future pre-operative clinic appointments since his previously planned knee surgery had to be cancelled because of COVID-19 exposure and hospitalization) (2) COVID-19: -management as above (3) Atrial fibrillation with rapid ventricular response: Abnormal Thyroid Function Test -Known permanent atrial fibrillation, follows with [facility] cardiology in [place] -TSH low as 0.175 uIu/ml on 01/17/2020 but with normal total T4 and free T4 levels -prior to 01/17/2020, patient's Xarelto had been held in anticipation of knee surgery and also was on less metoprolol the day before hospital presentation -currently titrating up from patient's home dose metoprolol is helping with heart rate control, continue to monitor on telemetry -admitting hospitalist replaced home dose Xarelto as Lovenox 1 mg/kg BID because of unclear status of whether patient would be assessed for knee surgery on this admission and wanted something temporary -since it is unlikely that patient will have knee surgery on this admission with recent positive COVID-19 tests, resumed home dose Xarelto as 20 mg daily on 01/18/2020 instead of using Lovenox (4) Acute exacerbation of CHF (congestive heart failure): -Preop TTE from [facility] on 01/10/20 with EF 50%, left ventricular systolic function is borderline low. Was in Afib with RVR with rate ranging from 90 to 120 bpm during the study. The right ventricular cavity is mildly dilated. The right ventricular systolic function is mildly reduced. Mild mitral regurgitation is present. Mild tricuspid regurgitation is present. There is aortic valve sclerosis without stenosis. Trace aortic regurgitation is present -Appears overloaded clinically on arrival as per admission notes and was given 80mg IV Lasix -currently on home dose Lasix oral 80 mg daily -repeat CXR on 01/19/2020: Lung volumes are normal. There is no pneumothorax or pleural effusion. Cardiomegaly is noted. Right basilar airspace opacity is similar to prior exam. There is no evidence for pulmonary edema. (5) CAD (coronary artery disease): H/o stent in 2007 -No chest pain or acute ST changes on admission. initial Troponin mildly elevated at 0.081 in setting -Continue aspirin, lisinopril, beta blockers, statin (6) COPD (chronic obstructive pulmonary disease): -longterm tobacco use, still smoking half pack per day. Declines nicotine patch -Continue Trelegy Ellipta (7) Hypertension: -on metoprolol and lisinopril (8) Chronic steroid use: -as outpatient, he was taking taking prednisone 10mg daily for knee pain. his home dose prednisone was held while receiving IV Dexamethasone -dscharge instructions as listed (9) Depression: -Continue Cymbalta (10) Hyperlipidemia: -Continue statin, ezetimibe DVT Ppx: Xarelto as 20 mg daily Code status: FULL Admission and Anticipated Discharge Date Admission Date: January 17, 2020 Subjective hypoxia at rest resolved on 01/20/2020 patient passed 2 step on 01/21/2020 and no oxygen needed on room air. patient is asymptomatic on all review of systems. discharge instructions discussed at length Review of Systems Review of Systems: All systems reviewed & are unremarkable except as noted in Subjective Physical Exam Constitutional: + obese and cooperative Eyes: PERRL, conjunctivae normal, anicteric sclerae EOM intact bilaterally ENMT: external ear and nose normal, oropharynx normal Neck: normal visual inspection Respiratory: normal respiratory effort Cardiovascular: Rate/Rhythm: regular rate and + irregularly irregular Gastrointestinal (Abdomen): normal bowel sounds, soft, nontender, no hepatosplenomegaly Musculoskeletal: Head/Neck/Chest: normocephalic and head atraumatic Neurologic: PERRL, EOMI, accommodation nl, no face palsy, no dysarthria CN's II-XI intact bilaterally, moves all extremities and awake Psychiatric: A+Ox3, euthymic affect Results & Data Results & Data ([facility]) Vital Signs (Past 12 Hours) Vital Signs Temp Pulse Pulse Pulse Pulse Pulse Resp 01/21/20 12:26 36.6 C 79 18 01/21/20 12:21 36.6 C 79 18 01/21/20 12:13 36.6 C 79 01/21/20 11:25 86 85 87 01/21/20 07:57 36.5 C 72 18 01/21/20 07:14 85 01/21/20 04:00 36.4 C L 88 18 Resp Resp Resp BP Pulse Ox Pulse Ox Pulse Ox 01/21/20 12:26 104/67 93 01/21/20 12:21 104/67 93 01/21/20 12:13 104/67 93 01/21/20 11:25 20 18 18 91 91 01/21/20 07:57 151/97 H 93 01/21/20 07:14 01/21/20 04:00 124/88 93 Pulse Ox 01/21/20 12:26 01/21/20 12:21 01/21/20 12:13 01/21/20 11:25 95 01/21/20 07:57 01/21/20 07:14 01/21/20 04:00 (1) Acute exacerbation of CHF (congestive heart failure) Heart failure type: systolic Qualified Code(s): I50.23 - Acute on chronic systolic (congestive) heart failure (2) CAD (coronary artery disease) Associated angina: without angina Coronary Disease-Associated Artery/Lesion type: [place] artery [place] vs. transplanted heart: [place] heart Qualified Code(s): I25.10 - Atherosclerotic heart disease of [place] coronary artery without angina pectoris
--- NOTE | 2020-01-21 13:34 | Discharge Summary ---
Date of Service January 21, 2020 Admission HPI Per Admitting Provider This is a 64-year-old male with PMH of CAD (s/p stent in 2007) permanent atrial fibrillation anticoagulated on Xarelto, chronic diastolic heart failure, hypertension, tobacco use disorder, COPD and other medical problems listed below who presents from same-day surgery with hypoxia and a positive covid test. Was scheduled for knee replacement today and was found to be hypoxic at 87% and in atrial fibrillation with RVR at 119 bpm. Was sent to ED for further evaluation. Patient was asymptomatic from a cardiac perspective, denying any lightheadedness, chest pain, palpitations or shortness of breath beyond basel ine. Has smoking history of 44 pack years and COPD with some shortness of breath at baseline but does not require oxygen. Uses inhalers as needed. Has not taken Xarelto in 4 days as instructed preoperatively. Normally takes metoprolol succinate 100 mg daily but was instructed to only take 50 mg this morning prior to surgery. Was also found to be Covid positive on preoperative screen. Denies any fever, chills, lightheadedness, headache, cough, shortness of breath, nausea, vomiting, abdominal pain or diarrhea. No known sick contacts or previous Covid diagnosis. Has been taking all other medications as prescribed. Initially hypoxic at 87% but now 92% on 2 L nasal cannula. Heart rate 132 now down to 100 after 5 mg IV Lopressor. No leukocytosis, hgb stable at 13, potassium of 3.7, magnesium 2.3, troponin 0.081. BNP, procalcitonin, CK, ferritin and d-dimer pending. Chest x-ray pending. Given dexamethasone 6 mg IV daily in ED as well as 80 mg IV Lasix. Started on therapeutic dose Lovenox for anticoagulation. Principal Diagnosis Hypoxia COVID-19 Atrial fibrillation with rapid ventricular response Abnormal Thyroid Function Test Acute on chronic exacerbation of diastolic CHF CAD (coronary artery disease) COPD (chronic obstructive pulmonary disease) Hypertension Chronic steroid use Discharge Exam Constitutional + obese and cooperative Eyes PERRL, conjunctivae normal, anicteric sclerae EOM intact bilaterally ENMT external ear and nose normal, oropharynx normal Neck normal visual inspection Respiratory normal respiratory effort Cardiovascular Rate/Rhythm: regular rate and + irregularly irregular Gastrointestinal (Abdomen) normal bowel sounds, soft, nontender, no hepatosplenomegaly Musculoskeletal Head/Neck/Chest: normocephalic and head atraumatic Neurologic PERRL, EOMI, accommodation nl, no face palsy, no dysarthria CN's II-XI intact bilaterally, moves all extremities and awake Psychiatric A+Ox3, euthymic affect Discharge Data Allergies Allergy/AdvReac Type Severity Reaction Status Date / Time No Known Allergies Allergy Verified 01/17/20 10:30 Consultations 01/17/20 13:45 ED Decision to Admit Stat 01/17/20 15:26 Consult Cardiology Routine Consult Case Management - Discharge Planning Routine Hospital Course (1) Hypoxia: -This is a 64-year-old male with PMH of CAD (s/p stent in 2007) permanent atrial fibrillation anticoagulated on Xarelto, chronic diastolic heart failure, hypertension, tobacco use disorder, COPD and other medical problems listed below who presents to the hospital on 01/17/2020 after initial plans for right knee re placement but was subsequently found to be hypoxic with being 87% oxygen saturation while on room air, atrial fibrillation with rapid ventricular response to 119 bpm, and also positive COVID-19 screening test on 01/17/2020 on evaluation in the ED -the 01/17/2020 CXR with airspace opacities at the right lung base, but the radiology read was equivocal "Right basilar opacities are indeterminant and could represent scarring/atelectasis versus an infectious/inflammatory pneumonitis" -since there was positive COVID-19 test and hypoxia, patient initiated on dexamethasone 6 mg IV daily and remdesivir daily and also transfused 1 unit of convalescent plasma -procalcitonin was negative and respiratory antibiotics was deemed needed by admitting hospitalist team -patient also had elevated BNP as 1163, and received IV Lasix 80 mg -as of 01/18/2020, patient continues to be on nasal cannula 2 liter/min. Patient also have [employer] test on 01/18/2020 that confirmed positive COVID-19 exposure but ruled out influenza or other respiratory viruses that is tested by the panel. Patient reports that he did not have flu vaccine this year. He also reports that while on nasal cannula oxygen in the hospital he feels subjectively well with his breathing and did have any dyspnea symptoms previous to the hospital presentation. He notes that has has been on room air in the recent past and that he had better O2 saturations when on room air in previous doctor clinic visits. Patient denies other symptoms - no pain, no fevers, no nausea, no vomiting, no dizziness, no headache but given recent hypoxia and COVID positive status, patient agrees for further treatment while in the hospital -01/19/2020: patient continues to be on 2 liters/min nasal cannula. Patient denies acute dyspnea. He showed whitish sputum which is vicious that he collected in a cup. Patient remains afebrile even though patient's previous procalcitonin were negative, patient to be started on ceftriaxone and doxycycline trial to see if bacterial antibiotics can help decrease oxygen requirements. Patient's hearts rates with atrial fibrillation and more tachycardic today. He denies chest pain or palpitations. Will increase the metoprolol dosing. Patient denies other symptoms on review of systems -01/20/2020: patient on room air. Heart rates are better controlled with current uptitration of metoprolol. Discussed with patient that if his heart rates remain well with a total of metoprolol 100 mg BID and if he remains on room air by 01/21/2020 then it would be possible that patient can be discharged. Continue other treatments of IV dexamethasone, remdesivir and IV antibiotics for now 01/21/2020: (COVID-19 with hypoxia on 01/17/2020 with atrial fibrillation in rapid response. hospital medications including treatments for COVID-19 such as dexamethasone 6 mg IV daily and remdesivir daily and also transfused 1 unit of convalescent plasma, antibiotics while metoprolol was titrated up for heart rate control hypoxia at rest resolved on 01/20/2020 patient passed 2 step on 01/21/2020 and no discharge medication sent to [facility] pharmacy in [place] of metoprolol tartrate 100 mg twice a day going forward of Augmentin and Doxycycline both as twice a day for next 10 days of prednisone 40 mg daily for 3 days and then 20 mg daily for 3 days. Patient can then return to usual prednisone dosing once the 6 day prednisone taper prescription is completed Patient advised to home quarantine for 10 to 14 days. When in public or around others in that timeframe, patient should wear mask at all times. Patient will need to make follow up appointments with his medical doctors. A teleconference appointment with his primary care doctor in the next 7 days is advised. Patient will need to make further appointments for future cardiology visit and any future pre-operative clinic appointments since his previously planned knee surgery had to be cancelled because of COVID-19 exposure and hospitalization) (2) COVID-19: -management as above (3) Atrial fibrillation with rapid ventricular response: Abnormal Thyroid Function Test -Known permanent atrial fibrillation, follows with [facility] cardiology in [place] -TSH low as 0.175 uIu/ml on 01/17/2020 but with normal total T4 and free T4 levels -prior to 01/17/2020, patient's Xarelto had been held in anticipation of knee surgery and also was on less metoprolol the day before hospital presentation -currently titrating up from patient's home dose metoprolol is helping with heart rate control, continue to monitor on telemetry -admitting hospitalist replaced home dose Xarelto as Lovenox 1 mg/kg BID because of unclear status of whether patient would be assessed for knee surgery on this admission and wanted something temporary -since it is unlikely that patient will have knee surgery on this admission with recent positive COVID-19 tests, resumed home dose Xarelto as 20 mg daily on 01/18/2020 instead of using Lovenox (4) Acute exacerbation of CHF (congestive heart failure): -Preop TTE from [facility] on 01/10/20 with EF 50%, left ventricular systolic function is borderline low. Was in Afib with RVR with rate ranging from 90 to 120 bpm during the study. The right ventricular cavity is mildly dilated. The right ventricular systolic function is mildly reduced. Mild mitral regurgitation is present. Mild tricuspid regurgitation is present. There is aortic valve sclerosis without stenosis. Trace aortic regurgitation is present -Appears overloaded clinically on arrival as per admission notes and was given 80mg IV Lasix -currently on home dose Lasix oral 80 mg daily -repeat CXR on 01/19/2020: Lung volumes are normal. There is no pneumothorax or pleural effusion. Cardiomegaly is noted. Right basilar airspace opacity is similar to prior exam. There is no evidence for pulmonary edema. (5) CAD (coronary artery disease): H/o stent in 2007 -No chest pain or acute ST changes on admission. initial Troponin mildly elevated at 0.081 in setting -Continue aspirin, lisinopril, beta blockers, statin (6) COPD (chronic obstructive pulmonary disease): -FDC tobacco use, still smoking half pack per day. Declines nicotine patch -Continue Trelegy Ellipta (7) Hypertension: -on metoprolol and lisinopril (8) Chronic steroid use: -as outpatient, he was taking taking prednisone 10mg daily for knee pain. his home dose prednisone was held while receiving IV Dexamethasone -dscharge instructions as listed (9) Depression: -Continue Cymbalta (10) Hyperlipidemia: -Continue statin, ezetimibe DVT Ppx: Xarelto as 20 mg daily Code status: FULL Total Time Total Time Spent Total Time Spent (In Minutes): 40 minutes Total Time Includes: Examination of the Patient, Discharge Planning, Medication Reconciliation and Communication With Other Providers Discharge Plan Discharge Items Patient Disposition: Home - Self-Care Reason For Visit: AFIB W/RVR, COVID+ Discharge Diagnosis: Hypoxia COVID-19 Atrial fibrillation with rapid ventricular response Abnormal Thyroid Function Test Acute on chronic exacerbation of diastolic CHF CAD (coronary artery disease) COPD (chronic obstructive pulmonary disease) Hypertension Chronic steroid use Condition on Discharge: Good Activity: Per Instructions section Bathing: No limitations Exercise/Sports: Gradually increase as tolerated Driving/Machine Use: No limitations Weightbearing: Full weightbearing Non-emergency contact: Primary Care Provider and Specialist Call non-emergency contact if: you have any medication questions Follow-up/Referrals: Tika Escalera PA-C [Primary Care Provider] - Diet: Heart Healthy Addtl Attending Provider Instructions: COVID-19 with hypoxia on 01/17/2020 with atrial fibrillation in rapid response. hospital medications including treatments for COVID-19 such as dexamethasone 6 mg IV daily and remdesivir daily and also transfused 1 unit of convalescent plasma, antibiotics while metoprolol was titrated up for heart rate control hypoxia at rest resolved on 01/20/2020 patient passed 2 step on 01/21/2020 and no discharge medication sent to [facility] pharmacy in [place] of metoprolol tartrate 100 mg twice a day going forward of Augmentin and Doxycycline both as twice a day for next 10 days of prednisone 40 mg daily for 3 days and then 20 mg daily for 3 days. Patient can then return to usual prednisone dosing once the 6 day prednisone taper prescription is completed Patient advised to home quarantine for 10 to 14 days. When in public or around others in that timeframe, patient should wear mask at all times. Patient will need to make follow up appointments with his medical doctors. A teleconference appointment with his primary care doctor in the next 7 days is advised. Patient will need to make further appointments for future cardiology visit and any future pre-operative clinic appointments since his previously planned knee surgery had to be cancelled because of COVID-19 exposure and hospitalization Addtl Gauger Chief Provider Instructions: Home Quarantine COVID-19 Instructions The following information about Home Isolation is from the CDC Website: https://www.cdc.gov/coronavirus/2019-ncov/hcp/mqktenhj-dnnxcux-jaeswx.html Stay home except to get medical care People who are mildly ill with COVID-19 are able to isolate at home during their illness. You should restrict activities outside your home, except for getting medical care. Do not go to work, school, or public areas. Avoid using public transportation, ride-sharing, or taxis. Separate yourself from other people and animals in your home People: As much as possible, you should stay in a specific room and away from o ther people in your home. Also, you should use a separate bathroom, if available. Animals: You should restrict contact with pets and other animals while you are sick with COVID-19, just like you would around other people. Although there have not been reports of pets or other animals becoming sick with COVID-19, it is still recommended that people sick with COVID-19 limit contact with animals until more information is known about the virus. When possible, have another member of your household care for your animals while you are sick. If you are sick with COVID-19, avoid contact with your pet, including petting, snuggling, being kissed or licked, and sharing food. If you must care for your pet or be around animals while you are sick, wash your hands before and after you interact with pets and wear a face mask. Call ahead before visiting your doctor If you have a medical appointment, call the healthcare provider and tell them that you have or may have COVID-19. This will help the healthcare providers office take steps to keep other people from getting infected or exposed. Wear a face mask You should wear a face mask when you are around other people (e.g., sharing a room or vehicle) or pets and before you enter a healthcare providers office. If you are not able to wear a face mask (for example, because it causes trouble breathing), then people who live with you should not stay in the same room with you, or they should wear a face mask if they enter your room. Cover your coughs and sneezes Cover your mouth and nose with a tissue when you cough or sneeze. Throw used tissues in a lined trash can. Immediately wash your hands with soap and water for at least 20 seconds or, if soap and water are not available, clean your hands with an alcohol-based hand three dimensional art instructor that contains at least 60% alcohol. Clean your hands often Wash your hands often with soap and water for at least 20 seconds, especially after blowing your nose, coughing, or sneezing; going to the bathroom; and before eating or preparing food. If soap and water are not readily available, use an alcohol-based hand three dimensional art instructor with at least 60% alcohol, covering all surfaces of your hands and rubbing them together until they feel dry. Soap and water are the best option if hands are visibly dirty. Avoid touching your eyes, nose, and mouth with unwashed hands. Avoid sharing personal household items You should not share dishes, drinking glasses, cups, eating utensils, towels, or bedding with other people or pets in your home. After using these items, they should be washed thoroughly with soap and water. Clean all high-touch surfaces everyday High touch surfaces include counters, tabletops, doorknobs, bathroom fixtures, toilets, phones, keyboards, tablets, and bedside tables. Also, clean any surfaces that may have blood, stool, or body fluids on them. Use a household cleaning spray or wipe, according to the label instructions. Labels contain instructions for safe and effective use of the cleaning product including pr ecautions you should take when applying the product, such as wearing gloves and making sure you have good ventilation during use of the product. Monitor your symptoms Seek prompt medical attention if your illness is worsening (e.g., difficulty breathing).Beforeseeking care, call your healthcare provider and tell them that you have, or are being evaluated for, COVID-19. Put on a face mask before you enter the facility. These steps will help the healthcare providers office to keep other people in the office or waiting room from getting infected or exposed. Ask your healthcare provider to call the local or state health department. Persons who are placed under active monitoring or facilitated self- monitoring should follow instructions provided by their local health department or occupational health professionals, as appropriate. When working with your local health department check their available hours. If you have a medical emergency and need to call 911, notify the dispatch personnel that you have, or are being evaluated for COVID-19. If possible, put on a face mask before emergency medical services arrive. Discontinuing home isolation Patients with confirmed COVID-19 should remain under home isolation precautions until the risk of secondary transmission to others is thought to be low. The decision to discontinue home isolation precautions should be made on a [id number] basis, in consultation with healthcare providers and [facility] and local health departments. Pending Studies at Discharge: No Stand-Alone Forms: My [facility] [employer], Smoking Cessation Medications and DC Order Prescriptions: New doxycycline hyclate 100 mg Capsule 100 mg PO BID 10 Days Qty: 20 RF: 0 amoxicillin-pot clavulanate [Augmentin] 875-125 mg Tablet 1 tab PO BIDM 10 Days Qty: 20 RF: 0 metoprolol tartrate 100 mg Tablet 100 mg PO BID 30 Days Qty: 60 RF: 0 prednisone 20 mg Tablet 40 mg PO UD 6 Days Qty: 9 RF: 0 Continued albuterol sulfate 1.25 mg/3 mL Solution For Nebulization 1.25 mg INHALATION Q4H PRN (Reason: sob) RF: 0 cyanocobalamin (vitamin B-12) [Vitamin B-12] 1,000 mcg Tablet 1,000 mcg PO QAM RF: 0 aspirin 81 mg Tablet,Delayed Release (Dr/Ec) 81 mg PO QAM RF: 0 furosemide 80 mg Tablet 80 mg PO QAM RF: 0 ferrous sulfate [Iron (ferrous sulfate)] 325 mg (65 mg iron) Tablet 325 mg PO QAM RF: 0 lisinopril 10 mg Tablet 10 mg PO QAM RF: 0 ezetimibe 10 mg Tablet 10 mg PO QAM RF: 0 rosuvastatin 40 mg Tablet 40 mg PO QAM RF: 0 duloxetine 60 mg Capsule,Delayed Release(Dr/Ec) 60 mg PO QAM RF: 0 omeprazole 20 mg Tablet,Delayed Release (Dr/Ec) 20 mg PO QAM RF: 0 Xarelto 20 mg Tablet 20 mg PO QAM RF: 0 potassium chloride 20 mEq Tablet Extended Release 20 meq PO QAM RF: 0 Trelegy Ellipta 200-62.5-25 mcg Blister With Device 1 inh INHALATION QAM RF: 0 Discontinued prednisone 10 mg Tablet 10 mg PO QAM RF: 0 metoprolol succinate 100 mg tablet extended release 24 hr 100 mg PO QAM RF: 0 Discharge Orders: Discharge Order (Routine); Ordered 01/21/20 Ordered By: Justice Werner/Other Patient Handouts: 2019-nCoV, COVID-19 Home Care, COVID-19 Plasma Donation Admission Data Admit Date/Time: 01/17/20 13:58 Attending Provider: Justice Mccarthy Admit Provider: Yonatan Stover Primary Care Provider: Tika Escalera Other Providers: Yonatan Stover ; Brannon Dickens Other Interventions: Discharge Summary Assessment (RN) Last Done: 01/21/20 12:26
[2020-01-21] MEDS ORDERED: AMOXICILLIN/CLAVULANATE 875 MG TAB PO SCH (17:00)
[2020-01-21] MEDS ORDERED: DOXYCYCLINE HYCLATE 100 MG CAP PO SCH (21:00)
[2020-01-22] MEDS ORDERED: predniSONE 20 MG TAB PO SCH (09:00)
[2020-01-22] MEDS ORDERED: FERROUS SULFATE 325 MG TAB PO SCH (12:00)
--- NOTE | 2020-02-02 06:32 | Coding Query ---
CODING QUERY To promote full compliance with coding requirements relating to patient care, provider participation is requested in all cases of physician coder uncertainty. Please assist us with the question(s) below: Coding Question(s): Please review X-Ray and document any significant findings below. Physician's Response(s): I do not understand your query. The X rays were previously reviewed and I reviewed it again. What is even the question? Thank you Joel Patricio Principal Diagnosis: "that condition established after study, to be chiefly responsible for occasioning the admission of the patient to the hospital for care." Co-Existing Principal Diagnosis: "when two or more diagnoses equally meet the criteria for principal diagnosis as determined by the circumstances of admission, diagnostic work up, and/or therapy provided, and the Alphabetic Index, Tabular List, or another coding guideline does not provide sequencing direction, any one of the diagnoses may be sequenced first." "When the physician has documented what appears to be a current diagnosis in the body of the record, but has not included the diagnosis in the final diagnostic statement, the physician should be asked whether the diagnosis should be added." (Source Coding [facility] 2 QTR90. p3-4) TERRENCE
== END 2020-01-21 14:14 | disposition home or self-care (01) | DRG 177 ==
LOC: ED 12:18 → SUATTDRO 13:58 → 2S 13:58